=== PATIENT | female | born 1995 | race Caucasian/White ===

== ENCOUNTER 2020-01-01 16:27 | Outpatient (REF) | payer OTHER, SELFPAY | END 2020-01-01 16:28 | disposition home or self-care (01) | LOC: HO.LAB 16:27 | PROVIDERS: Visit Provider Internal Medicine | DX: Z20.828 Contact with and (suspected) exposure to other viral communicable diseases (principal) | CPT/HCPCS: 87635 ==

== ENCOUNTER 2020-08-26 20:10 | Emergency (ER) | payer OTHER, SELFPAY ==
[2020-08-26 20:46] VITALS: BP 109/69; PULSE 84; RESP 18; TEMP 36.7; O2SAT 100; BMI 28.1
[2020-08-26] MEDS: Lidocaine HCl 2 % MPF 5 ML VIAL SUBCUT (23:17)
--- NOTE | 2020-08-26 23:17 | ED.GENADULT ---
HPI - General Adult General Chief complaint: General Medical Stated complaint: infected spider bite Time Seen by Provider: 08/26/20 22:54 Source: patient Mode of arrival: ambulatory Limitations: no limitations History of Present Illness HPI narrative: 24-year-old female here with wound to the right lower extremity. The patient is 6 days ago she was [place] and felt like she got bit by something in the right lower leg. She was seen at urgent care 2 days ago and started on Bactrim but feels like the wound is not improving. No fevers or chills. Related Data Previous Rx's Medication Instructions Recorded doxycycline monohydrate 100 mg PO BID #14 cap 08/26/20 Allergies Allergy/AdvReac Type Severity Reaction Status Date / Time peanut [PEANUT] Allergy Severe DIFFICULTY Verified 08/26/20 20:46 BREATHING diphenhydramine Allergy Unknown Unknown Verified 08/26/20 20:46 [From BENADRYL] pineapple [PINEAPPLE] Allergy Unknown UNKNOWN Verified 08/26/20 20:46 SEAFOOD Allergy Severe DIFFICULTY Uncoded 11/21/19 16:38 BREATHING All sea foods Allergy Intermediate itching Uncoded 08/26/20 20:46 Laxtex Allergy Intermediate hives Uncoded 08/26/20 20:46 pinapple Allergy Unknown itchng Uncoded 09/04/19 00:00 throat Review of Systems Review of Systems: Yes all other systems are reviewed and are negative Constitutional: Constitutional: Reports no additional constitutional complaints, Denies body ache(s), Denies chills, Denies fever(s), Denies headache(s) and Denies weakness Eyes: Eyes: Reports no additional eye complaints and Denies change in vision ENT: Reports system reviewed and no additional complaints, except as documented, Denies dizziness, Denies headache(s), Denies nasal congestion, Denies nasal discharge and Denies neck pain Cardiovascular: Cardiovascular: Reports no additional cardiovascular complaints, Denies chest pain, Denies leg edema and Denies dyspnea Respiratory: Respiratory: Reports no additional respiratory complaints, Denies cough and Denies dyspnea Gastrointestinal: Gastrointestinal: Reports no additional gastrointestinal complaints, Denies abdominal pain, Denies diarrhea, Denies nausea and Denies vomiting Genitourinary: Genitourinary: Reports no additional female genitourinary complaints and Denies urinary incontinence Musculoskeletal: Musculoskeletal: Reports no additional musculoskeletal complaints, Denies back pain, Denies arthralgias, Denies joint swelling, Denies neck pain, Denies numbness and Denies tingling Integumentary/Breasts: Skin/Breast: Reports system reviewed and no additional complaints, except as docu, Reports swelling, Reports erythema and Denies rash Neurologic: Reports system reviewed and no additional complaints, except as documented, Denies Abnormal speech present, Denies dizziness, Denies headache(s), Denies numbness, Denies tingling and Denies weakness PMFSH Past Medical History Attestation statement: The following information was validated with the patient. Source: old records reviewed and nursing notes reviewed Medical History Anxiety Surgical History History of delivery Social History Social History Advance Directives: No Advance Directives Information Provided: No Patient : No Physical Exam Vital Signs: Vital Signs: Last Vital Signs Temp 98.1 F 08/26/20 20:46 Pulse 84 08/26/20 20:46 Resp 18 08/26/20 20:46 BP 109/69 08/26/20 20:46 Pulse Ox 100 08/26/20 20:46 Body Mass Index 28.1 Const: General: cooperative, healthy appearing, comfortable and no acute distress Orientation/consciousness: patient oriented x3 Limitations: no limitations HENMT: Head: Yes normal to inspection Ears: hearing grossly normal bilaterally General nose exam: Normal external nose present Face and sinus: Yes normal facial exam Mouth: Normal oral and palatal mucosa present Throat: Yes posterior oropharynx normal Eyes: General: appearance normal, both eyes and all related structures Pupils: Equal, round and reactive pupils present Neck: Neck: Yes normal visual inspection Chest: Chest palpation & inspection: normal inspection of the chest Resp: Effort & Inspection: normal respiratory effort Auscultation: clear to auscultation bilaterally Cardio: Rate: regular rate Rhythm: regular rhythm Peripheral pulses: Peripheral pulses 2+ throughout GI: Inspection: Yes normal to inspection Palpation (GI): Soft to palpation and nontender Auscultation: normal bowel sounds Back/Spine/Pelvis: Thoracic/Lumbar Spine: thoracic and lumbar spine normal to inspection Skin: Other: To the anterior aspect of the right lower extremity there is a circular area of redness with a central area of fluctuance, drainage and swelling. General skin exam: no rashes or lesions noted Neuro: General: patient oriented x3, no focal motor deficits and normal sensation to monofilament Cranial nerves: Yes Equal, round and reactive pupils present Cognition (Neuro): normal cognition Speech: No Abnormal speech present Gait exam (Neuro): Normal gait present Motor exam (neuro): 5/5 motor strength present throughout Extrem: General: Yes normal to inspection Course Course Course Narrative: Local cellulitis the right lower extremity with a central area of fluctuance and swelling. See procedure note for I and D. Will start patient on doxycycline. Reviewed wound care. Reviewed worrisome signs and symptoms such as fever, increasing swelling or pain when to return to the emergency department. Comfortable discharge home. Procedures Procedure Narrative Procedure Narrative: Area was cleansed with alcohol. 3 mL of 2% lidocaine were injected into the site was successful analgesia. Eleven blade used to express 5 mL of purulent drainage. dressing applied Discharge Plan Discharge Clinical Impression: Cellulitis, Insect bite, Abscess Patient Disposition: Home, Self-Care Instructions: Cellulitis (ED), Insect Bite or Sting (ED) Additional Instructions: start antibiotics warm compresses return for increasing redness, fevers, chills Prescriptions: New doxycycline monohydrate 100 mg capsule 100 mg PO BID Qty: 14 RF: 0 Referrals: Physician,Unknown [Primary Care Provider] - 2 days Interventions: ED Discharge Assessment Last Done: 08/26/20 23:15 Discharge Date/Time: 08/26/20 23:16
== END 2020-08-26 23:16 | disposition home or self-care (01) ==
PROVIDERS: Emergency Provider Emergency Medicine
DX: L02.415 Cutaneous abscess of right lower limb (principal); S80.861A Insect bite (nonvenomous), right lower leg, initial encounter; L03.115 Cellulitis of right lower limb; W57.XXXA Bitten or stung by nonvenomous insect and other nonvenomous arthropods, initial encounter; Y93.11 Activity, swimming; Y92.828 Other wilderness area as the place of occurrence of the external cause; Y99.9 Unspecified external cause status
CPT/HCPCS: 10060; 99284

== ENCOUNTER 2021-12-20 12:19 | Emergency (ER) | payer OTHER, SELFPAY ==
[2021-12-20 13:00] VITALS: BP 100/58; PULSE 69; RESP 16; TEMP 36.9; O2SAT 100; BMI 26.5
[2021-12-20 13:58] LABS: HCG Quantitative < 2 mIU/mL
--- NOTE | 2021-12-20 14:17 | ED.GENADULT ---
HPI - General Adult General Chief complaint: General Medical Stated complaint: ? Time Seen by Provider: 12/20/21 14:12 Source: patient Mode of arrival: ambulatory Limitations: no limitations History of Present Illness HPI narrative: unprotected intercouse 12/01, missed menses x 1 week neg preg test at home here for blood test MD complaint: menses late x 1 week Onset (ago): week(s) (1) Severity: mild Relieving factors: none Exacerbating factors: none Associated symptoms: denies other symptoms Treatments prior to arrival: none Related Data Previous Rx's Medication Instructions Recorded doxycycline monohydrate 100 mg 100 mg PO BID #14 caps 08/26/20 capsule Allergies Allergy/AdvReac Type Severity Reaction Status Date / Time peanut [PEANUT] Allergy Severe DIFFICULTY Verified 05/20/21 14:43 BREATHING diphenhydramine Allergy Unknown Unknown Verified 05/20/21 14:43 [From BENADRYL] pineapple [PINEAPPLE] Allergy Unknown UNKNOWN Verified 05/20/21 14:43 SEAFOOD Allergy Severe DIFFICULTY Uncoded 05/20/21 14:43 BREATHING All sea foods Allergy Intermediate itching Uncoded 05/20/21 14:43 Laxtex Allergy Intermediate hives Uncoded 05/20/21 14:43 pinapple Allergy Unknown itchng Uncoded 05/20/21 14:43 throat Review of Systems Review of Systems: Constitutional : No Fever, No Chills Cardiovascular : No Chest Pain, No SOB Respiratory : No Cough, No Sputum, No Wheezing Gastrointestinal : No Nausea, No Vomiting, No abdominal Pain, No Hematochezia, No Melena Genitourinary : No Dysuria, No Urinary Frequency, No Hematuria, missed menses Skin : No Skin Lesions, No rash Neuro : No Weakness, No Numbness, No Dizziness, No Headache PMFSH Past Medical History Medical History Anxiety Surgical History History of delivery Social History Social History (Updated 12/20/21 @ 14:28 by Charleen Jewell DO) Patient Tobacco Use Status: Never used Tobacco Physical Exam ED Vital Signs: Vital Signs - 24 hr 12/20/21 13:00 Temperature 98.5 F Pulse Rate 69 Respiratory Rate 16 Blood Pressure 100/58 L Pulse Oximetry 100 Oxygen Delivery Method Room Air BMI result Body Mass Index 26.5 Appearance: Alert. Oriented X3. No acute distress. Eyes: Pupils equal, round and reactive to light. ENT: Pharynx normal. Neck: Normal inspection. Neck supple. CVS: Normal heart rate and rhythm. Pulses normal. Respiratory: No respiratory distress. Breath sounds normal. Abdomen:atraumatic Skin: Skin warm and dry. Normal skin color. Neuro: Oriented X 3. No motor deficit. No sensory deficit. Medical Decision Making MDM Narrative Medical decision making narrative: 26 yo female unprotected sex on 12/01 late on period x 1 week negative test home - requesting blood test here which is negative has no symptoms. instructed her to take repeat test in 1 week if this continues will test for chlamydia given irregular menses Lab Data Labs: Lab Results 12/20/21 Range/Units 13:09 Beta HCG, Quant < 2 mIU/mL Discharge Plan Discharge Clinical Impression: Negative test Patient Disposition: Home, Self-Care Instructions: Normal Exam (ED) Additional Instructions: return to ED for any worsening symptoms or concerns negative test today repeat in 1 week Prescriptions: No Action doxycycline monohydrate 100 mg capsule 100 mg PO BID Qty: 14 0RF
[2021-12-20 16:48] LABS: CT PCR DETECTED (Not Detect.); NG PCR NOT DETECTED (Not Detect.)
== END 2021-12-20 14:41 | disposition home or self-care (01) ==
PROVIDERS: Emergency Medicine; Emergency Provider Emergency Medicine
DX: A74.9 Chlamydial infection, unspecified (principal); Z32.02 Encounter for pregnancy test, result negative
CPT/HCPCS: 36415; 84702; 87491; 87591; 99283

== ENCOUNTER 2022-09-30 18:40 | Emergency (ER) | payer OTHER, SELFPAY ==
[2022-09-30 18:51] VITALS: BP 127/79; PULSE 76; RESP 18; TEMP 36.3; O2SAT 94; BMI 27.0
--- OUTSIDE RECORDS SUMMARY | 2022-09-30 19:21 | XMS_ITS | Continuity of Care Document ---
Author Name Unknown Organization [facility] Adult Address [address] [place] [address]- Care Team Providers Care Rand Butter Name Role Phone Jaymie Yeh MD Primary Care Physician [phone] [facility] [place] Date(s): 12/14/20 - 01/13/21 [facility] Adult [address] [place] [address]- Allergies, Adverse Reactions, Alerts Substance Reaction Severity Status Benadryl Active Latex Active Peanuts Active Seafood Active Pineapple Active Immunizations Given and Recorded Vaccine Date Status Refusal Reason tetanus/diphtheria/pertussis, acel(Tdap) 01/15/19 Given Medications Aviane 100 mcg-20 mcg oral tablet 1 tablet, By Mouth, Daily, # 84 tablet, 3 Refills, Maintenance, 12/04/20 11:04:00 EDT, Tablet, [id number], Partial fill upon patient request if the prescription is for a schedule II opioid drug., 1 tablet By Mouth Daily, 151, cm, 12/04/20 10:5... Start Date: 12/04/20 Status: Ordered Diflucan 150 mg oral tablet 1 tablet = 150 mg, By Mouth, Once, # 1 tablet, 0 Refills, Soft Stop, 09/11/20 14:54:00 EDT, [id number], Partial fill upon patient request if the prescription is for a schedule II opioid drug., 151, cm, 09/11/20 11:43:00 EDT, Height Start Date: 09/11/20 Status: Ordered triamcinolone 0.1% topical cream See Instructions, APPLY TO AFFECTED AREA TWICE A DAY, # 60 Gm, 0 Refills, Acute, [id number], 30, APPLY TO AFFECTED AREA TWICE A DAY, 151, cm, 09/11/20 11:43:00 EDT, Height Start Date: 10/16/20 Status: Ordered Problem List Condition Effective Dates Status Health Status Inform ant H/O Chlamydia(Confirmed) Active Dermatitis(Confirmed) Active Noncompliance(Confirmed) Active Sickle cell trait(Confirmed) Active Social History Social History Type Response Smoking Status Never (less than 100 in lifetime) entered on: 07/05/18 Sex Female
--- OUTSIDE RECORDS SUMMARY | 2022-09-30 19:21 | XMS_ITS | Continuity of Care Document ---
Author Name Unknown Organization [facility] Adult Address [address] [place] [address]- Care Team Providers Care Clinical Editor Name Role Phone Ruba BARROS, Jaymie Primary Care Physician [place] [facility] [place]/01/21 [facility] [address] [place], [place] [address] Allergies, Adverse Reactions, Alerts Substance Reaction Severity [...] A DAY, # 60 Gm, 0 Refills, Physician Stop 03/05/22 8:31:00 EST, 03/03/21 8:31:00 EST, [id number], 30, APPLY TO AFFECTED AREA TWICE A DAY, 151, cm, 03/02/21 9:46:00 EST, Height Start Date: 03/03/21 Stop Date: 03/05/22 Status: Ordered Problem List Condition Effective Dates Status Health Status Inform ant H/O Chlamydia(Confirmed) Active Dermatitis(Confirmed) Active Noncompliance(Confirmed) Active Sickle cell trait(Confirmed) Active Social History Social History Type Response Smoking Status Never (less than 100 in lifetime) entered on: 07/05/18 Sex Female
--- OUTSIDE RECORDS SUMMARY | 2022-09-30 19:21 | XMS_ITS | Continuity of Care Document ---
Author Name Unknown Organization [facility] Adult Address [address] [place] [address]- Care Team Providers Care Filter Worker Name Role Phone Jaymie Yeh MD Primary Care Physician [phone] Encounter [facility] [place] Date(s): 11/16/20 - 12/16/20 [facility] Adult [address] [place] [address]- Allergies, Adverse Reactions, Alerts Substance Reaction Severity [...] 60 Gm, 0 Refills, Acute, [id number], 30, APPLY TO AFFECTED AREA TWICE A [...]
--- OUTSIDE RECORDS SUMMARY | 2022-09-30 19:21 | XMS_ITS | Continuity of Care Document ---
Author Name Unknown Organization [facility] Adult Address [address] [place] [address]- Care Team Providers Care Software Program Manager Name Role Phone Ruba BARROS, Jaymie Primary Care Physician [place] [facility] [place] Date(s): 03/02/21 - 04/01/[address] [facility] Adult [address] [place] [address]- Attending Physician: Bill Spencer Admitting Physician: AdmBill lennon Referring Physician: AdmtrBill Allergies, Adverse Reactions, Alerts Substance Reaction Severity Status Benadryl Active Latex Active Pineapple Active Peanuts Active Seafood Active Immunizations Given and Recorded Vaccine Date [...]
--- OUTSIDE RECORDS SUMMARY | 2022-09-30 19:21 | XMS_ITS | Continuity of Care Document ---
Author Name Unknown Organization [facility] Address [address] [place] [address]- Care Team Providers Care Side Framer Name Role Phone Ruba BARROS, Jaymie Primary Care Physician Encounter [facility] [place] Date(s): 06/03/20 - 07/03/20 [facility] [address] [place], [place] [address] [[email or web address]] Allergies, Adverse Reactions, Alerts Substance Reaction Severity Status Benadryl Active Latex Active Peanuts Active Seafood Active Pineapple Active Immunizations Given and Recorded Vaccine Date Status Refusal Reason tetanus/diphtheria/pertussis, acel(Tdap) 01/15/19 Given Medications Plan B One-Step 1.5 mg oral tablet 1.5 mg, 1, tablet, By Mouth, Once, # 1 tablet, Refills 0, Tot. Refills 0, Soft Stop, 05/09/20 13:37:00 EST, Route to Pharmacy Electronically, [facility]/pharmacy #[id number], Partial fill upon patient request if the prescription is for a schedule II opioid drug.,... Start Date: 05/09/20 Status: Ordered Plan B One-Step 1.5 mg oral tablet 1.5 mg, 1, tablet, By Mouth, Once, # 1 tablet, Refills 0, Tot. Refills 0, Soft Stop, 06/22/20 16:29:00 EDT, Route to Pharmacy Electronically, [facility]/pharmacy #[id number], Partial fill upon patient request if the prescription is for a schedule II opioid drug.,... Start Date: 06/22/20 Status: Ordered triamcinolone 0.1% topical cream See Instructions, Topically 2 times a day, # 60 Gm, 0 Refills, Maintenance, 06/08/20 12:45:00 EDT, [facility]/pharmacy #[id number], Partial fill upon patient request if the prescription is for a schedule II opioid drug., Topically 2 times a day, 151, cm, 03/26/20... Start Date: 06/08/20 Status: Ordered Problem List Condition Effective Dates Status Health Status Inform ant H/O Chlamydia(Confirmed) Active Dermatitis(Confirmed) Active Noncompliance(Confirmed) Active Sickle cell trait(Confirmed) Active Social History Social History Type Response Smoking Status Never (less than 100 in lifetime) entered on: 07/05/18 Sex Female
--- OUTSIDE RECORDS SUMMARY | 2022-09-30 19:21 | XMS_ITS | Continuity of Care Document ---
Author Name Unknown Organization [facility] Adult Address [address] [place] [address]- Care Team Providers Care Fire Hose Curer Name Role Phone Jaymie Yeh MD Primary Care Physician [phone] [id number] Date(s): 05/05/22 - 06/04/[address] [address]- Allergies, Adverse Reactions, Alerts Substance Reaction Severity Status Benadryl Active Latex Active Peanuts Active Seafood Active Pineapple Active Immunizations Given and Recorded Vaccine Date Status Refusal Reason tetanus/diphtheria/pertussis, acel(Tdap) 01/15/19 Given Medications ferrous sulfate 325 mg oral enteric coated tablet 325 mg, 1, tablet, By Mouth, 2 times a day, # 180 tablet, Refills 1, Tot. Refills 1, Maintenance, 05/27/22 10:12:00 EDT, Route to Pharmacy Electronically, [facility]/pharmacy #[id number], Partial fill upon patient request if the prescription is for a schedule II o... Start Date: 05/27/22 Status: Ordered Problem List Condition Confirmation Course Effective Dates Status Health St [facility] Informant Dermatitis Confirmed Active Noncompliance Confirmed Active Sickle cell trait Confirmed Active Social History Social History Type Response Smoking Status Never (less than 100 in lifetime) entered on: 05/09/22 Sex Female Patient Care team information Care Team Personnel Name: Jaymie Yeh MD Position: S Primary Care Physician Member Role: PCP Address: Address: [address] [place] [address]- Care Team Related Persons Name: ALETA HERNDON Address: home [address] [place] [address] Name: EDNA WALDRON Address: [place] [address] Name: ANANYA SUMMERSALYS Address: [employer] Address: home [address] [place] [address]
--- OUTSIDE RECORDS SUMMARY | 2022-09-30 19:21 | XMS_ITS | Continuity of Care Document ---
Author Name Unknown Organization [facility] Adult Address [address] [place] [address]- Care Team Providers Care Scrap Materials Buyer Name Role Phone Ruba BARROS, Jaymie Primary Care Physician [phone] Encounter [facility] [place] Date(s): 01/26/21 - 03/18/21 [facility] Adult [address] [place] [address]- Attending Physician: Jaymie Yeh MD Allergies, Adverse Reactions, Alerts Substance Reaction Severity [...]
--- OUTSIDE RECORDS SUMMARY | 2022-09-30 19:21 | XMS_ITS | Continuity of Care Document ---
Author Name Unknown Organization [facility] Adult Address [address] [place] [address]- Care Team Providers Care Post Secondary Professional Name Role Phone Ruba BARROS, Jaymie Primary Care Physician [place] [facility] [place]21 - 05/15/21 [facility] [address] [place], [place] [address] Allergies, Adverse Reactions, Alerts Substance Reaction Severity [...]
--- OUTSIDE RECORDS SUMMARY | 2022-09-30 19:21 | XMS_ITS | Continuity of Care Document ---
Author Name Unknown Organization [facility] Adult Address [address] [place] [address]- Care Team Providers Care Supervisor Riprap Placing Name Role Phone Jaymie Yeh MD Primary Care Physician [phone] Encounter [place] Date(s): 12/08/20 - 01/07/21 [facility] [address] [place] [address]- Allergies, Adverse Reactions, Alerts Substance Reaction Severity [...] 60 Gm, 0 Refills, Acute, [id number], 30, APPLY TO AFFECTED AREA TWICE A [...]
--- NOTE | 2022-09-30 19:22 | ED_ITS ---
HPI - General Adult General Chief complaint: Skin/Abscess/Foreign Body Stated complaint: staff infection? Time Seen by Provider: 09/30/22 19:21 Source: patient Mode of arrival: ambulatory Limitations: no limitations History of Present Illness HPI narrative: Patient is a 26 year old assigned female at with a history of eczema presenting to the emergency department today with a rash. Patient states that she has not used any kind of steroid for her eczema in over a year. Patient states that this rash seems to be getting worse and spreading. Patient states that she believes this is a staph infection as she was exposed to staph. Patient denies any dizziness, lightheadedness, abdominal pain, nausea, vomiting, fever, chills, blurry vision, double vision, loss of vision, chest pain, difficulty breathing, shortness of breath, back pain, night sweats, pain with urination, increased urinary frequency, increased urinary urgency, blood in her urine or stool, syncope or a near syncopal episode, recent trauma or falls, bowel incontinence, bladder incontinence, bowel retention, bladder retention, or any other complaints at this time. Onset (ago): day(s) Location: face, left, right, upper extremity and lower extremity Severity: mild Severity scale (1-10): 3 Relieving factors: none Exacerbating factors: none Associated symptoms: rash Treatments prior to arrival: none Related Data Previous Rx's Medication Instructions Recorded doxycycline monohydrate 100 mg 100 mg PO BID #14 caps 08/26/20 capsule doxycycline monohydrate 100 mg 100 mg PO BID #20 tabs 12/22/21 tablet cephalexin 500 mg capsule 500 mg PO Q6H 7 days #28 caps 09/30/22 Allergies Allergy/AdvReac Type Severity Reaction Status Date / Time peanut [PEANUT] Allergy Severe DIFFICULTY Verified 05/20/21 14:43 BREATHING diphenhydramine Allergy Unknown Unknown Verified 05/20/21 14:43 [From BENADRYL] pineapple [PINEAPPLE] Allergy Unknown UNKNOWN Verified 05/20/21 14:43 Latex, Natural Rubber Allergy Itching Verified 09/30/22 18:57 SEAFOOD Allergy Severe DIFFICULTY Uncoded 05/20/21 14:43 BREATHING All sea foods Allergy Intermediate itching Uncoded 05/20/21 14:43 Review of Systems Constitutional: Constitutional: Reports no additional constitutional complaints, Denies chills, Denies fever(s) and Denies night sweats Eyes: Eyes: Reports no additional eye complaints, Denies blurry vision, Denies change in vision, Denies diplopia, Denies eye discharge, Denies loss of vision and Denies eye pain ENT: Denies dizziness Cardiovascular: Cardiovascular: Reports no additional cardiovascular complaints, Denies chest pain, Denies lightheadedness, Denies Loss of Consciousness and Denies dyspnea Respiratory: Respiratory: Reports no additional respiratory complaints and Denies dyspnea Gastrointestinal: Gastrointestinal: Reports no additional gastrointestinal complaints, Denies abdominal pain, Denies melena, Denies hematochezia, Denies change in bowel habits and Denies change in stool character Genitourinary: Genitourinary: Denies hematuria, Denies urinary frequency, Denies dysuria, Denies urinary incontinence, Denies urinary hesitancy and Denies urinary urgency Musculoskeletal: Musculoskeletal: Reports no additional musculoskeletal complaints, Denies numbness and Denies tingling Integumentary/Breasts: Skin/Breast: Reports rash Neurologic: Denies dizziness, Denies loss of vision, Denies numbness and Denies tingling Psychiatric: Psychiatric: Reports no additional psychiatric complaints Endocrine: Endocrine: Reports no additional endocrine complaints Hematologic/Lymphatic: Hematologic/Lymphatic: Reports no additional hematologic/lymphatic complaints Allergic/Immunologic: Allergic/Immunologic: Reports no additional allergic/immunologic complaints PMFSH Past Medical History Attestation statement: The following information was validated with the patient. Source: old records reviewed and nursing notes reviewed Medical History Anxiety Surgical History History of delivery Social History Social History Patient Tobacco Use Status: Never used Tobacco Advance Directives: No Advance Directives Information Provided: Yes Physical Exam ED Vital Signs: Vital Signs - 24 hr 09/30/22 18:51 Temperature 97.4 F Pulse Rate 76 Respiratory Rate 18 Blood Pressure 127/79 Pulse Oximetry 94 BMI result Body Mass Index 27.0 Const General: cooperative, no acute distress, alert and awake Nutritional Appearance: well nourished Orientation/consciousness: patient oriented x3 Limitations: no limitations HENMT Head: Yes normal to inspection and Yes atraumatic Ears: hearing grossly normal bilaterally and external ears normal General nose exam: Normal external nose present, no nasal discharge noted and no epistaxis Face and sinus: Yes normal facial exam, No abrasion and No laceration Mouth: Normal oral and palatal mucosa present, no drooling and no muffled voice Eyes General: appearance normal, both eyes and all related structures Periorbital: periorbital findings normal Eyelids: Yes eyelids normal Conjunctivae: conjunctivae normal Pupils: Equal, round and reactive pupils present EOM: EOMs intact bilaterally Neck Neck: Yes normal visual inspection, Yes full ROM and Yes no lymphadenopathy Chest Chest palpation & inspection: normal inspection of the chest Resp Effort & Inspection: normal respiratory effort and able to speak in complete sentences GI Inspection: Yes normal to inspection Skin Other: rash to the bilateral hands, feet, and face Neuro General: patient oriented x3 and moves all extremities Cranial nerves: Yes Equal, round and reactive pupils present Cognition (Neuro): normal cognition Motor exam (neuro): 5/5 motor strength present throughout Sensory Exam: Normal double simultaneous stimulation for sensation Coordination: [id number] test normal Extrem General: Yes normal to inspection, Yes full ROM and Yes capillary refill normal Psych Appearance: grossly normal Mental Status: mental status grossly normal Affect: normal affect Attitude: cooperative Thought process: Normal thought process present Thought content: Normal thought content present Insight: Good insight present (Psych) Medical Decision Making Medical Decision Making MDM Narrative: Patient is a 26 year old assigned female at with a history of eczema presenting to the emergency department today with a rash. Patient's physical exam showed a rash. I explained my physical exam findings to the patient. I answered all questions asked by the patient. Patient refused any kind of steroid treatment. I stressed the importance of the patient taking her medication as prescribed. I stressed the importance of the patient following up with her primary care provider and a red hat linux administrator. I stressed the importance of the patient returning to the emergency department immediately if her symptoms were to worsen or if she were to develop any dizziness, shortness of breath, difficulty breathing, chest pain, blurry vision, loss of vision, nausea, vomiting, abdominal pain, fever, chills, back pain, or any other complaints. Patient verbalized agreement and understanding with this treatment plan and discharge. Differential Diagnosis Differential Diagnoses: The differential diagnosis associated with the presentation includes Eczema Folliculitis Impetigo Staph cellulitis Prescription Management I considered prescription management with: Antibiotic (patient prescribed an antibiotic.) Discharge Plan Discharge Clinical Impression: Staph skin infection Patient Disposition: Home, Self-Care Instructions: Cellulitis (DC) Additional Instructions: Follow up with your primary care provider. Return to the emergency department immediately if your symptoms worsen or if you develop any dizziness, shortness of breath, difficulty breathing, chest pain, blurry vision, loss of vision, nausea, vomiting, abdominal pain, fever, chills, back pain, or any other complaints. Prescriptions: New cephalexin 500 mg capsule 500 mg PO Q6H 7 Days Qty: 28 0RF No Action doxycycline monohydrate 100 mg capsule 100 mg PO BID Qty: 14 0RF doxycycline monohydrate 100 mg tablet 100 mg PO BID Qty: 20 0RF Referrals: [facility] [Provider Group] (Call to establish and follow up with a red hat linux administrator (exterior interior specialist).) [facility] [place]] (Call to establish and follow up with a primary care provider. If you already have a primary care provider, please follow up with them.) [facility] [place] [facility] [Provider Group] (Call to establish and follow up with a primary care provider. If you already have a primary care provider, please follow up with them.) [facility] [place] [Provider Group] (Call to establish and follow up with a primary care provider. If you already have a primary care provider, please follow up with them.) Interventions: ED Discharge Assessment Last Done: 09/30/22 20:10 Discharge Date/Time: 09/30/22 20:10 Print Language: Croatian
--- OUTSIDE RECORDS SUMMARY | 2022-09-30 19:22 | XMS_ITS | Continuity of Care Document ---
Author Name Unknown Organization [facility] Address [address] [place] [address]- Care Team Providers Care Sales Manager Prearranged Funerals Name Role Phone Raheem BARROS, [facility] Primary Care Physician Encounter [facility] [place] Date(s): 01/28/19 - 02/28/[address] [address]- [facility] Attending Physician: Not on Staff, Attending MD Allergies, Adverse Reactions, Alerts Substance Reaction Severity Status Benadryl Active Latex Active Peanuts Active Seafood Active Pineapple Active Immunizations Given and Recorded Vaccine Date Status Refusal Reason tetanus/diphtheria/pertussis, acel(Tdap) 01/15/19 Given Medications Colace sodium 100 mg oral capsule 100 mg, 1, capsule, By Mouth, 2 times a day, PRN, # 20 capsule, Refills 0, Tot. Refills 0, Maintenance, for constipation, 02/07/19 13:42:09 EST, Route to Pharmacy Electronically, [id number], [facility]/pharmacy #[id number], 151, cm, 02/07... Start Date: 02/07/19 Status: Ordered Multivitamins with Folic Acid 1 mg oral capsule See Instructions, TAKE ONE DAILY BY MOUTH, # 100 tablet, 2 Refills, Maintenance, 07/05/18 16:52:13 EDT, TAKE ONE DAILY BY MOUTH Start Date: 07/05/18 Status: Ordered Problem List Condition Effective Dates Status Health Status Inform ant H/O Anxiety(Confirmed) Active H/O Chlamydia(Confirmed) Active Eczema(Confirmed) Active History of varicella as a child(Confirmed) Active History of marijuana use(Confirmed) Active Noncompliance(Confirmed) Active Sickle cell trait(Confirmed) Active Social History Social History Type Response Smoking Status Never (less than 100 in lifetime) entered on: 07/05/18 Sex Female
--- OUTSIDE RECORDS SUMMARY | 2022-09-30 19:22 | XMS_ITS | Continuity of Care Document ---
Author Name Unknown Organization [facility] Adult Address [address] [place] [address]- Care Team Providers Care Slat Pickler Name Role Phone Ruba BARROS, Jaymie Primary Care Physician [id number] Date(s[facility] 06/30/20 - 10/28/20 [facility] [address] [place] [address]- Attending Physician: Jaymie Yeh MD Allergies, Adverse Reactions, Alerts Substance Reaction Severity Status Benadryl Active Latex Active Pineapple Active Peanuts Active Seafood Active Immunizations Given and Recorded Vaccine Date Status Refusal Reason tetanus/diphtheria/pertussis, acel(Tdap) 01/15/19 Given Medications Diflucan 150 mg oral tablet 1 tablet = 150 mg, By Mouth, Once, # 1 tablet, 0 Refills, Soft Stop, 09/11/20 14:54:00 EDT, [facility]/pharmacy #[id number], Partial fill upon patient request if the prescription is for a schedule II opioid drug., 151, cm, 09/11/20 11:43:00 EDT, Height Start Date: 09/11/20 Status: Ordered Plan B One-Step 1.5 mg oral tablet 1.5 mg, 1, tablet, By Mouth, Once, # 1 tablet, Refills 0, Tot. Refills 0, Soft Stop, 05/09/20 13:37:00 EST, Route to Pharmacy Electronically, [facility]/pharmacy #[id number], Partial fill upon patient request if the prescription is for a schedule II opioid drug.,... Start Date: 05/09/20 Status: Ordered Plan B One-Step 1.5 mg oral tablet 1.5 mg, 1, tablet, By Mouth, Once, # 1 tablet, Refills 0, Tot. Refills 0, Soft Stop, 08/25/20 9:59:00 EDT, Route to Pharmacy Electronically, [facility]/pharmacy #[id number], Partial fill upon patient request if the prescription is for a schedule II opioid drug., 1... Start Date: 08/25/20 Status: Ordered triamcinolone 0.1% topical cream See Instructions, APPLY TO AFFECTED AREA TWICE A DAY, # 60 Gm, 0 Refills, Acute, [id number], 30, APPLY TO AFFECTED AREA TWICE A [...]
--- OUTSIDE RECORDS SUMMARY | 2022-09-30 19:22 | XMS_ITS | Continuity of Care Document ---
Author Name Unknown Organization [facility] Address [address] [place] [address]- Care Team Providers Care Ladle Watcher Name Role Phone Jaymie Yeh MD Primary Care Physician [phone] [facility] [id number] Date(s): 07/17/20 - 08/16/20 [facility] [address] [place], [place] [address] Attending Physician: AdmBill lennon Admitting Physician: AdmtrBill Referring Physician: Admtr, Ar8 Allergies, Adverse Reactions, Alerts Substance Reaction Severity Status Benadryl Active Latex Active Peanuts Active Seafood Active Pineapple Active Immunizations Given and Recorded Vaccine Date Status Refusal Reason tetanus/diphtheria/pertussis, acel(Tdap) 01/15/19 Given Medications Plan B One-Step 1.5 mg oral tablet 1.5 mg, 1, tablet, By Mouth, Once, # 1 tablet, Refills 0, Tot. Refills 0, Soft Stop, 05/09/20 13:37:00 EST, Route to Pharmacy Electronically, [facility]/pharmacy #[id number], Partial fill upon patient request if the prescription is for a schedule II opioid drug.,... Start Date: 05/09/20 Status: Ordered Plan B One-Step 1.5 mg oral tablet 1.5 mg, 1, tablet, By Mouth, Once, # 1 tablet, Refills 0, Tot. Refills 0, Soft Stop, 06/22/20 16:29:00 EDT, Route to Pharmacy Electronically, [facility]acy [id number], Partial fill upon patient request if the prescription is for a schedule II opioid drug.,... Start Date: 06/22/20 Status: Ordered triamcinolone 0.1% topical cream See Instructions, Topically 2 times a day, # 60 Gm, 0 Refills, Maintenance, 07/15/20 15:02:00 EDT, [facility]/pharmacy #[id number], Partial fill upon patient request if the prescription is for a schedule II opioid drug., Topically 2 times a day, 151, cm, 03/26/20... Start Date: 07/15/20 Status: Ordered Problem List Condition Effective Dates Status Health Status Inform ant H/O Chlamydia(Confirmed) Active Dermatitis(Confirmed) Active Noncompliance(Confirmed) Active Sickle cell trait(Confirmed) Active Social History Social History Type Response Smoking Status Never (less than 100 in lifetime) entered on: 07/05/18 Sex Female
--- OUTSIDE RECORDS SUMMARY | 2022-09-30 19:22 | XMS_ITS | Continuity of Care Document ---
Author Name Unknown Organization [facility] Address [address] [place] [address]- Care Team Providers Care Removable Prosthodontist Name Role Phone Jaymie Yeh MD Primary Care Physician [place] [facility] - 08/13/22 [facility] [address] [place] [address]- Attending Physician: Bill Spencer Admitting Physician: Bill Spencer Referring Physician: Bill Spencer Allergies, Adverse Reactions, Alerts Substance Reaction Severity Status Benadryl Active Latex Active Peanuts Active Seafood Active Pineapple Active Immunizations Given and Recorded Vaccine Date Status Refusal Reason tetanus/diphtheria/pertussis, acel(Tdap) 01/15/19 Given Problem List Condition Confirmation Course Effective Dates Status [facility] Informant Dermatitis Confirmed Active Noncompliance Confirmed Active Sickle cell trait Confirmed Active Social History Social History Type Response Smoking Status Never (less than 100 in lifetime) entered on: 05/09/22 Sex Female Patient Care team information Care Team Personnel Name: Jaymie Yeh MD Position: [facility] Physician - Primary Care Member Role: PCP [facility]: [facility] [place] [address]- [place] Care Team Related Persons Name: ALETA HERNDON Address: home [address] [place] [address] Name: EDNA WALDRON Address: [place] [address] Name: MORENO SUMMERS Address: [employer] Address: home [address] [place] [address]
--- OUTSIDE RECORDS SUMMARY | 2022-09-30 19:22 | XMS_ITS | Continuity of Care Document ---
Author Name Unknown Organization [facility] Address [address] [place] [address]- Care Team Providers Care Household Appliances Service Technician Name Role Phone Jaymie Yeh MD Primary Care Physician [id number] Date(s): 03/08/21 - 04/07/[address] [address]- Attending Physician: AdmBill lennon Admitting Physician: AdmtrBill [...]
--- OUTSIDE RECORDS SUMMARY | 2022-09-30 19:22 | XMS_ITS | Continuity of Care Document ---
Author Name Unknown Organization [facility] Address [address] [place] [address]- Care Team Providers Care Box Spring Frame Builder Name Role Phone Ruba BARROS, Jaymie Primary Care Physician Encounter [facility] Date(s): 11/03/20 - 12/03/20 [facility] [address] [place] [address]- Attending Physician: Bill Spencer Admitting Physician: AdmBill [...] 0 Refills, Soft Stop, 09/11/20 14:54:00 EDT, [facility]/pharmacy #[id number], Partial fill upon patient request if the prescription is for a schedule II opioid drug., 151, cm, 09/11/20 11:43:00 EDT, Height Start Date: 09/11/20 Status: Ordered Plan B One-Step 1.5 mg oral tablet 1.5 mg, 1, tablet, By Mouth, Once, # 1 tablet, Refills 0, Tot. Refills 0, Soft Stop, 05/09/20 13:37:00 EST, Route to Pharmacy Electronically, [facility]/pharmacy #[id number], Partial fill upon patient request if the prescription is for a schedule II opioid drug.,... Start Date: 05/09/20 Status: Ordered Plan B One-Step 1.5 mg oral tablet 1.5 mg, 1, tablet, By Mouth, Once, # 1 tablet, Refills 0, Tot. Refills 0, Soft Stop, 08/25/20 9:59:00 EDT, Route to Pharmacy Electronically, [facility]/pharmacy #[id number], Partial fill upon patient request if the prescription is for a schedule II opioid drug., 1... Start Date: 08/25/20 Status: Ordered triamcinolone 0.1% topical cream See Instructions, APPLY TO AFFECTED AREA TWICE A DAY, # 60 Gm, 0 Refills, Acute, [id number], 30, APPLY TO AFFECTED AREA TWICE A [...]
--- OUTSIDE RECORDS SUMMARY | 2022-09-30 19:22 | XMS_ITS | Continuity of Care Document ---
Author Name Unknown Organization [facility] Address [address] [place] [address]- Care Team Providers Care Telephone Lines Repairer Name Role Phone Ruba BARROS, Jaymie Primary [id number] Date(s[facility] 06/03/20 - 08/16/20 [facility] [address] [place] [address]- Attending Physician: Wen High MD Referring Physician: Jaymie Yeh MD Allergies, Adverse Reactions, [...] 05/09/20 13:37:00 EST, Route to Pharmacy Electronically, [facility]/pharmacy #[id number], Partial fill upon patient request if the prescription is for a schedule II opioid drug.,... Start Date: 05/09/20 Status: Ordered Plan B One-Step 1.5 mg oral tablet 1.5 mg, 1, tablet, By Mouth, Once, # 1 tablet, Refills 0, Tot. Refills 0, Soft Stop, 06/22/20 16:29:00 EDT, Route to Pharmacy Electronically, [facility]/pharmacy #[id number], Partial fill upon patient request if the prescription is for a schedule II opioid drug.,... Start Date: 06/22/20 Status: Ordered triamcinolone 0.1% topical cream See Instructions, Topically 2 times a day, # 60 Gm, 0 Refills, Maintenance, 07/15/20 15:02:00 EDT, [facility]/pharmacy #[id number], Partial fill upon patient request if the [...]
--- OUTSIDE RECORDS SUMMARY | 2022-09-30 19:22 | XMS_ITS | Continuity of Care Document ---
Author Name Unknown Organization [facility] Address [address] [place] [address]- Care Team Providers Care Cisco Engineer Name Role Phone Jaymie Yeh MD Primary Care Physician [id number] Date(s): 05/09/22 - 06/08/[address] [address]- Allergies, Adverse Reactions, Alerts Substance Reaction Severity [...] 05/27/22 10:12:00 EDT, Route to Pharmacy Electronically, [facility]/pharmacy #[id number], Partial fill upon patient request if the prescription is for a schedule II o... Start Date: 05/27/22 Status: Ordered Problem List Condition Confirmation Course Effective Dates Status [facility] Informant Dermatitis Confirmed Active Noncompliance Confirmed Active Sickle cell trait Confirmed Active Social History Social History Type Response Smoking Status Never (less than 100 in lifetime) entered on: 05/09/22 Sex Female Patient Care team information Care Team Personnel Name: Jaymie Yeh MD Position: S Primary Care Physician Member Role: PCP Address: Address: [address] [place] [address]- Care Team Related Persons Name: ALETA HERNDON Address: home [address] [place] [address] Name: EDNA WALDRON Address: [place] [address] Name: CARRIE SUMMERSJEREMY Address: [employer] Address: home [address] [place] [address]
--- OUTSIDE RECORDS SUMMARY | 2022-09-30 19:22 | XMS_ITS | Continuity of Care Document ---
Author Name Unknown Organization [facility] Address [address] [place] [address]- Care Team Providers Care Call Worker Name Role Phone Raheem BARROS, [facility] Primary Care Physician En[place] [facility] [place] Date(s): 12/07/18 - 02/17/19 [facility] [address] [place] [address]- [facility] Attending Physician: Raheem BARROS, [facility] Allergies, Adverse Reactions, Alerts Substance Reaction Severity [...] 02/07/19 13:42:09 EST, Route to Pharmacy Electronically, [id number], [facility]/pharmacy #[id number], 151, cm, 02/07... Start Date: 02/07/19 Status: Ordered ibuprofen 600 mg oral tablet 600 mg, 1, tablet, By Mouth, Every 6 hours, # 30 tablet, Refills 0, Tot. Refills 0, Acute 03/01/19 0:00:00 EST, 02/07/19 13:42:15 EST, Route to Pharmacy Electronically, [id number], [facility]/pharmacy #[id number], 151, cm, 02/07/19 8:59:3... Start Date: 02/07/19 Stop Date: 03/01/19 Status: Ordered Multivitamins with Folic Acid 1 mg oral capsule See Instructions, TAKE ONE DAILY BY MOUTH, # 100 tablet, 2 Refills, Maintenance, 07/05/18 16:52:13 EDT, TAKE ONE DAILY BY MOUTH Start Date: 07/05/18 Status: Ordered simethicone 80 mg oral tablet 1 tablet = 80 mg, Chew, 3 times a day after meals and bedtime, PRN for gas, # 60 tablet, 0 Refills,Acute 03/01/19 0:00:00 EST, 02/07/19 13:42:19 EST, Tablet, 151, cm, 02/07/19 8:59:31 EST, Height, 63.3, kg, 05/02/18 16:54:16 EST, Dry Weight Start Date: 02/07/19 Stop Date: 03/01/19 Status: Ordered Tylenol 325 mg oral tablet 650 mg, 2, tablet, By Mouth, Every 4 hours, PRN, # 120 tablet, Refills 0, Tot. Refills 0, Acute 02/28/19 0:00:00 EST, for pain, 02/07/19 13:42:26 EST, Route to Pharmacy Electronically, [id number], [facility]/pharmacy #[id number], 151, cm,... Start Date: 02/07/19 Stop Date: 02/28/19 Status: Ordered Problem List Condition Effective Dates [...]
--- OUTSIDE RECORDS SUMMARY | 2022-09-30 19:22 | XMS_ITS | Continuity of Care Document ---
Author Name Unknown Organization [facility] Address [address] [place] [address]- Care Team Providers Care Security Officer Name Role Phone Jaymie Yeh MD Primary Care Physician En[place] [facility] Date(s): 07/14/22 - 08/13/[address] [facility] [address] [place] [address]- Allergies, Adverse Reactions, Alerts Substance Reaction Severity [...] Personnel Name: Jaymie Yeh MD Position: S Physician - Primary Care Member Role: PCP Address: Address: [address] [place] [address] [address] [place], [place] [address] Care Team Related Persons Name: ALETA HERNDON Address: home [address] [place] [address] Name: EDNA WALDRON Address: [place] [address] Name: MORENO SUMMERS Address: [employer] Address: home [address] [place] [address]
--- OUTSIDE RECORDS SUMMARY | 2022-09-30 19:22 | XMS_ITS | Continuity of Care Document ---
Author Name Unknown Organization [facility] Address [address] [place] [address]- Care Team Providers Care Firefighter Name Role Phone Ruba BARROS, Jaymie Primary Care Physician [place] [facility] [place] Date(s): 03/02/21 - 03/09/21 [facility] [address] [place] [address]- Attending Physician: Not on Staff, Attending MD [...] Active Noncompliance(Confirmed) Active Sickle cell trait(Confirmed) Active Vital Signs Most recent to oldest [Reference Range]: 1 Height 151 cm (03/02/21 9:46 AM) Social History Social History Type Response Smoking Status Never (less than 100 in lifetime) entered on: 07/05/18 Sex Female
--- OUTSIDE RECORDS SUMMARY | 2022-09-30 19:22 | XMS_ITS | Continuity of Care Document ---
Author Name Unknown Organization [facility] Address [address] [place] [address]- Care Team Providers Care Silk Printer Name Role Phone Not on Staff, PCP Primary Care Physician Unavail able Encounter [facility] [place] Date(s): 03/22/19 - 04/01/[address] [address]- [facility] Attending Physician: Bill Spencer Admitting Physician: Bill [...] 02/07/19 13:42:09 EST, Route to Pharmacy Electronically, [id number], [facility]/pharmacy #[id number], 151, cm, 02/07... Start Date: 02/07/19 Status: [...]
--- OUTSIDE RECORDS SUMMARY | 2022-09-30 19:22 | XMS_ITS | Continuity of Care Document ---
Author Name Unknown Organization [facility] Address [address] [place] [address]- Care Team Providers Care Rolled Oats Mill Operator Name Role Phone Jaymie Yeh MD Primary Care Physician [phone] [id number] Date(s): 12/08/20 - 04/07/[address] [address]- Attending Physician: Not on Staff, Attending MD [...]
--- OUTSIDE RECORDS SUMMARY | 2022-09-30 19:22 | XMS_ITS | Continuity of Care Document ---
Author Name Unknown Organization [facility] Adult Address [address] [place] [address]- Care Team Providers Care Car Sweeper Name Role Phone Jaymie Yeh MD Primary Care Physician En[place] [facility] Date(s): 05/27/22 - 06/26/[address] [address]- Allergies, Adverse Reactions, Alerts Substance Reaction Severity Status Benadryl Active Latex Active Peanuts Active Pineapple Active Seafood Active Immunizations Given and Recorded Vaccine Date Status Refusal Reason tetanus/diphtheria/pertussis, acel(Tdap) 01/15/19 Given Medications ferrous sulfate 325 mg oral enteric coated tablet 325 mg, 1, tablet, By Mouth, 2 times a day, # 180 tablet, Refills 1, Tot. Refills 1, Maintenance, 05/27/22 10:12:00 EDT, Route to Pharmacy Electronically, [facility]/pharmacy #[id number], Partial fill upon patient request if the [...] Care Physician Member Role: PCP Address: Address: [address] [place] [address]- Care Team Related Persons Name: ALETA HERNDON Address: home [address] [place] [address] Name: EDNA WALDRON Address: [place] [address] Name: ANANYA SUMMERSALYS Address: AMERCN Address: home [address] [place] [address]
--- OUTSIDE RECORDS SUMMARY | 2022-09-30 19:22 | XMS_ITS | Continuity of Care Document ---
Author Name Unknown Organization [facility] Adult Address [address] [place] [address]- Care Team Providers Care Data Technician Name Role Phone Ruba BARROS, Jaymie Primary Care Physician Encounter [facility] Date(s): 09/09/21 - 09/16/21 [facility] Adult [address] [place] [address]- Encounter Diagnosis Fatigue(Discharge Diagnosis) - 09/09/21 Attending Physician: Jaymie Yeh MD Allergies, Adverse [...] Active Noncompliance(Confirmed) Active Sickle cell trait(Confirmed) Active Diagnosis Diagnosis Type Effective Dates Health Status Clini ronn Service Informant Fatigue Discharge Diagnosis 09/09/21 Social History Social History Type Response Smoking Status Never (less than 100 in lifetime) entered on: 07/05/18 Sex Female
--- OUTSIDE RECORDS SUMMARY | 2022-09-30 19:22 | XMS_ITS | Continuity of Care Document ---
Author Name Unknown Organization [facility] Address [address] [place] [address]- Care Team Providers Care Sole Stitcher Hand Name Role Phone Ruba BARROS, Jaymie Primary Care Physician [phone] [id number] Date(s[facility] 06/02/20 - 06/09/20 [facility] [address] [place] [address]- Attending Physician: Wen High MD Referring Physician: Not on Staff, Referring MD Allergies, Adverse Reactions, Alerts Substance Reaction [...] 05/09/20 13:37:00 EST, Route to Pharmacy Electronically, [facility]/pharmacy #[id number], Partial fill upon patient request if the prescription is for a schedule II opioid drug.,... Start Date: 05/09/20 Status: Ordered triamcinolone 0.1% topical cream See Instructions, Topically 2 times a day, # 60 Gm, 0 Refills, Maintenance, 06/08/20 12:45:00 EDT, [id number], Partial fill upon patient [...]
--- OUTSIDE RECORDS SUMMARY | 2022-09-30 19:22 | XMS_ITS | Continuity of Care Document ---
Author Name Unknown Organization [facility] Address [address] [place] [address]- Care Team Providers Care Senior Nuclear Medicine Technologist Name Role Phone Jaymie Yeh MD Primary Care Physician [phone] Encounter [facility] [place] Date(s): 06/20/22 - 07/20/22 [facility] [address] [place] [address]- Allergies, Adverse Reactions, Alerts Substance Reaction Severity [...] Physician Member Role: PCP Address: Address: [address] [place] [address] 3rd Floor [place], [place] [address] Care Team Related Persons Name: ALETA HERNDON Address: home [address] [place] [address] Name: EDNA WALDRON Address: [facility] [place] [address] Name: MORENO SUMMERS Address: AMER[place] Address: home [address] [place] [address]
--- OUTSIDE RECORDS SUMMARY | 2022-09-30 19:22 | XMS_ITS | Continuity of Care Document ---
Author Name Unknown Organization [facility] Address [address] [place] [address]- Care Team Providers Care Property Assessment Monitor Name Role Phone Ruba BARROS, Jaymie Primary Care Physician En[place] [facility] [place] Date(s): 12/17/21 - 01/16/[address] [address]- Attending Physician: Bill Spencer Admitting Physician: Bill Spencer Referring Physician: AdmtrBill Allergies, Adverse Reactions, Alerts [...] Stop 03/05/22 8:31:00 EST, 03/03/21 8:31:00 EST, [facility]/pharmacy #[id number], 30, APPLY TO AFFECTED AREA TWICE A DAY, 151, cm, 03/02/21 9:46:00 EST, Height Start Date: 03/03/21 Stop Date: 03/05/22 Status: Ordered Problem List Condition Confirmation Course Effective Dates Status Health St [facility] Informant H/O Chlamydia Confirmed Active Dermatitis Confirmed Active Noncompliance Confirmed Active Sickle cell trait Confirmed Active Social History Social History Type Response Smoking Status Never (less than 100 in lifetime) entered on: 07/05/18 Sex Female Patient Care team information Care Team Personnel Name: Jaymie Yeh MD Position: [facility] Primary Care Physician Member Role: PCP Address: Address: [address] [place] [address] [address] [place] [address]- Care Team Related Persons Name: ALETA HERNDON Address: home [address] [place] [address] Name: EDNA WALDRON Address: [place] [address] Name: MORENO SUMMERS Address: AMERCN Address: home [address] [place] [address]
--- OUTSIDE RECORDS SUMMARY | 2022-09-30 19:22 | XMS_ITS | Continuity of Care Document ---
Author Name Unknown Organization [facility] Address [address] [place] [address]- Care Team Providers Care Lpn Private Duty Name Role Phone Not on Staff, PCP Primary Care Physician Unavail able Encounter [facility] Date(s): 02/06/19 - 04/21/[address] [address]- [facility] Attending Physician: Not on Staff, Attending MD [...] 02/07/19 13:42:09 EST, Route to Pharmacy Electronically, [id number], [facility]/pharmacy #[id number], 151, cm, 02/07... Start Date: 02/07/19 Status: [...]
--- OUTSIDE RECORDS SUMMARY | 2022-09-30 19:22 | XMS_ITS | Continuity of Care Document ---
Author Name Unknown Organization [facility] Address [address] [place] [address]- Care Team Providers Care Recreational Sports Director Name Role Phone Raheem [facility]ARROS, [facility] Primary [id number]04[facility] - 03/13/[address] [address]- [facility] Attending Physician: Not on Staff, Attending [...] 02/07/19 13:42:09 EST, Route to Pharmacy Electronically, [id number], [facility]/pharmacy #[id number], 151, cm, 02/07... Start Date: 02/07/19 Status: [...]
--- OUTSIDE RECORDS SUMMARY | 2022-09-30 19:22 | XMS_ITS | Continuity of Care Document ---
Author Name Unknown Organization [facility] Adult Address [address] [place] [address]- Care Team Providers Care Linux Unix Engineer Name Role Phone Jaymie Yeh MD Primary [id number] 05/09[facility] - 06/08/[address] [address]- Allergies, Adverse Reactions, Alerts Substance Reaction Severity [...] 05/27/22 10:12:00 EDT, Route to Pharmacy Electronically, [facility]/pharmacy #[id number], Partial fill upon patient request if the prescription is for a schedule II o... Start Date: 05/27/22 Status: Ordered Problem List Condition Confirmation Course Effective Dates Status [facility] Informant Dermatitis Confirmed Active Noncompliance Confirmed Active Sickle cell trait Confirmed Active Social History Social History Type Response Smoking Status Never (less than 100 in lifetime) entered on: 05/09/22 Sex Female Patient Care team information Care Team Personnel Name: Jaymie Yeh MD Position: S Primary Care Physician Member Role: PCP Address: Address: [address] [place] [address]- Care Team Related Persons Name: ALETA HERNDON Address: home [address] [place] [address] Name: EDNA WALDRON Address: [place] [address] Name: CARRIE SUMMERSJEREMY Address: AMERCN Address: home [address] [place] [address]
--- OUTSIDE RECORDS SUMMARY | 2022-09-30 19:22 | XMS_ITS | Continuity of Care Document ---
Author Name Unknown Organization [facility] Adult Address [address] [place] [address]- Care Team Providers Care On Air Talent Name Role Phone Ruba BARROS, Jaymie Primary Care Physician [place] [facility] [place] 02/23/21 - 03/25/21 [facility] Adult [address] [place], [place] [email or web address] Allergies, Adverse Reactions, [...]
--- OUTSIDE RECORDS SUMMARY | 2022-09-30 19:22 | XMS_ITS | Continuity of Care Document ---
Author Name Unknown Organization [facility] Adult Address [address] [place] [address]- Care Team Providers Care Nuclear Medical Technologist Name Role Phone Ruba BARROS, Jaymie Primary Care Physician Encounter [facility] Date(s): 08/24/20 - 09/23/20 [facility] Adult [address] [place] [address]- Allergies, Adverse Reactions, Alerts Substance Reaction Severity Status Benadryl Active Latex Active Peanuts Active Seafood Active Pineapple Active Immunizations Given and Recorded Vaccine Date Status Refusal Reason tetanus/diphtheria/pertussis, acel(Tdap) 01/15/19 Given Medications Diflucan 150 mg oral tablet 1 tablet = 150 mg, By Mouth, Once, # 1 tablet, 0 Refills, Soft Stop, 09/11/20 14:54:00 EDT, [facility]/pharmacy #[id number], Partial fill upon patient request if the prescription is for a schedule II opioid drug., 151, cm, 09/11/20 11:43:00 EDT, Height Start Date: 09/11/20 Status: Ordered Plan B One-Step 1.5 mg oral tablet 1.5 mg, 1, tablet, By Mouth, Once, # 1 tablet, Refills 0, Tot. Refills 0, Soft Stop, 05/09/20 13:37:00 EST, Route to Pharmacy Electronically, [facility]/pharmacy #[id number], Partial fill upon patient request if the prescription is for a schedule II opioid drug.,... Start Date: 05/09/20 Status: Ordered Plan B One-Step 1.5 mg oral tablet 1.5 mg, 1, tablet, By Mouth, Once, # 1 tablet, Refills 0, Tot. Refills 0, Soft Stop, 08/25/20 9:59:00 EDT, Route to Pharmacy Electronically, [facility]/pharmacy #[id number], Partial fill upon patient request if the prescription is for a schedule II opioid drug., 1... Start Date: 08/25/20 Status: Ordered triamcinolone 0.1% topical cream See Instructions, APPLY TO AFFECTED AREA TWICE A DAY, # 60 Gm, 0 Refills, Acute, [id number], 30, APPLY TO AFFECTED AREA TWICE A DAY, 151, cm, 03/26/20 12:26:00 EST, Height Start Date: 09/09/20 Status: Ordered Problem List Condition Effective Dates Status Health Status Inform ant H/O Chlamydia(Confirmed) Active Dermatitis(Confirmed) Active Noncompliance(Confirmed) Active Sickle cell trait(Confirmed) Active Social History Social History Type Response Smoking Status Never (less than 100 in lifetime) entered on: 07/05/18 Sex Female
--- OUTSIDE RECORDS SUMMARY | 2022-09-30 19:22 | XMS_ITS | Continuity of Care Document ---
Author Name Unknown Organization [facility] Adult Address [address] [place] [address]- Care Team Providers Care Sponge Hooker Name Role Phone Ruba BARROS, Jaymie Primary Care Physician Encounter [facility] Date(s): 09/15/20 - 12/03/20 [facility] Adult [address] [place] [address]- Attending Physician: Jaymie Yeh MD Allergies, Adverse Reactions, Alerts Substance Reaction Severity Status Benadryl Active Latex Active Peanuts Active Seafood Active Pineapple Active Immunizations Given and Recorded Vaccine Date Status Refusal Reason tetanus/diphtheria/pertussis, acel(Tdap) 01/15/19 Given Medications Diflucan 150 mg oral tablet 1 tablet = 150 mg, By Mouth, Once, # 1 tablet, 0 Refills, Soft Stop, 09/11/20 14:54:00 EDT, [facility]/pharmacy #[id number], Partial fill upon patient request if the prescription is for a schedule II opioid drug., 151, cm, 09/11/20 11:43:00 EDT, Height Start Date: 09/11/20 Status: Ordered Plan B One-Step 1.5 mg oral tablet 1.5 mg, 1, tablet, By Mouth, Once, # 1 tablet, Refills 0, Tot. Refills 0, Soft Stop, 05/09/20 13:37:00 EST, Route to Pharmacy Electronically, [facility]/pharmacy #[id number], Partial fill upon patient request if the prescription is for a schedule II opioid drug.,... Start Date: 05/09/20 Status: Ordered Plan B One-Step 1.5 mg oral tablet 1.5 mg, 1, tablet, By Mouth, Once, # 1 tablet, Refills 0, Tot. Refills 0, Soft Stop, 08/25/20 9:59:00 EDT, Route to Pharmacy Electronically, [facility]/pharmacy #[id number], Partial fill upon patient request if the prescription is for a schedule II opioid drug., 1... Start Date: 08/25/20 Status: Ordered triamcinolone 0.1% topical cream See Instructions, APPLY TO AFFECTED AREA TWICE A DAY, # 60 Gm, 0 Refills, Acute, [facility] STORE [id number], 30, APPLY TO AFFECTED AREA TWICE A [...]
--- OUTSIDE RECORDS SUMMARY | 2022-09-30 19:22 | XMS_ITS | Continuity of Care Document ---
Author Name Unknown Organization [facility] Adult Address [address] [place] [address]- Care Team Providers Care Beauty Therapist Name Role Phone Ruba BARROS, Jaymie Primary Care Physician En[place] [facility] [place] Date(s): 08/19/20 - 09/18/20 [facility] Adult [address] [place] [address]- Allergies, Adverse Reactions, Alerts Substance Reaction Severity Status Benadryl Active Latex Active Peanuts Active Seafood Active Pineapple Active Immunizations Given and Recorded Vaccine Date Status Refusal Reason tetanus/diphtheria/pertussis, acel(Tdap) 01/15/19 Given Medications Diflucan 150 mg oral tablet 1 tablet = 150 mg, By Mouth, Once, # 1 tablet, 0 Refills, Soft Stop, 09/11/20 14:54:00 EDT, [facility]/pharmacy #[id number], Partial fill upon patient request if the prescription is for a schedule II opioid drug., 151, cm, 09/11/20 11:43:00 EDT, Height Start Date: 09/11/20 Status: Ordered Plan B One-Step 1.5 mg oral tablet 1.5 mg, 1, tablet, By Mouth, Once, # 1 tablet, Refills 0, Tot. Refills 0, Soft Stop, 05/09/20 13:37:00 EST, Route to Pharmacy Electronically, [facility]/pharmacy #[id number], Partial fill upon patient request if the prescription is for a schedule II opioid drug.,... Start Date: 05/09/20 Status: Ordered Plan B One-Step 1.5 mg oral tablet 1.5 mg, 1, tablet, By Mouth, Once, # 1 tablet, Refills 0, Tot. Refills 0, Soft Stop, 08/25/20 9:59:00 EDT, Route to Pharmacy Electronically, [facility]/pharmacy #[id number], Partial fill upon patient request if the prescription is for a schedule II opioid drug., 1... Start Date: 08/25/20 Status: Ordered triamcinolone 0.1% topical cream See Instructions, APPLY TO AFFECTED AREA TWICE A DAY, # 60 Gm, 0 Refills, Acute, [id number], 30, APPLY TO AFFECTED AREA TWICE A [...]
--- OUTSIDE RECORDS SUMMARY | 2022-09-30 19:22 | XMS_ITS | Continuity of Care Document ---
Author Name Unknown Organization [facility] Adult Address [address] [place] [address]- Care Team Providers Care Senior Developer Name Role Phone Ruba BARROS, Jaymie Primary Care Physician [id number] - 04/[facility]/20 [facility] Adult [address] [place] [address]- Encounter Diagnosis Dermatitis(Discharge Diagnosis) - 03/29/20 Sickle cell trait(Discharge Diagnosis) - 03/29/20 Attending Physician: Jaymie Yeh MD Allergies, Adverse Reactions, Alerts Substance Reaction Severity Status Benadryl Active Latex Active Peanuts Active Pineapple Active Seafood Active Immunizations Given and Recorded Vaccine Date Status Refusal Reason tetanus/diphtheria/pertussis, acel(Tdap) 01/15/19 Given Medications triamcinolone 0.1% topical cream See Instructions, Topically 2 times a day, # 60 Gm, 0 Refills, Maintenance, 03/26/20 15:44:00 [facility]/pharmacy #1001, Partial fill upon patient request if the prescription is for a schedule II opioid drug., Topically 2 times a day, 151, cm, 03/26/20... Start Date: 03/26/20 Status: Ordered Problem List Condition Effective Dates Status Health Status Inform ant H/O Chlamydia(Confirmed) Active Dermatitis(Confirmed) Active Noncompliance(Confirmed) Active Sickle cell trait(Confirmed) Active Diagnosis Diagnosis Type Effective Dates Health Status Clinical Service Informant Dermatitis Discharge Diagnosis 03/29/20 Sickle cell trait Discharge Diagnosis 03/29/20 Vital Signs Most recent to oldest [Reference Range]: 1 Height 151 cm (03/26/20 12:26 PM) Social History Social History Type Response Smoking Status Never (less than 100 in lifetime) entered on: 07/05/18 Sex Female
--- OUTSIDE RECORDS SUMMARY | 2022-09-30 19:23 | XMS_ITS | Continuity of Care Document ---
Author Name Unknown Organization [facility] Address [address] [address]- Care Team Providers Care Hse Advisor Name Role Phone Ruba BARROS, Jaymie Primary Care Physician [phone] Encounter [facility] [id number] Date(s): 04/01/20 - 05/16/20 [facility] [address] [address] Attending Physician: Not on Staff, Attending MD Referring Physician: Jaymie Yeh MD Allergies, [...] 05/09/20 13:37:00 EST, Route to Pharmacy Electronically, [facility]/pharmacy #[id number], Partial fill upon patient request if the prescription is for a schedule II opioid drug.,... Start Date: 05/09/20 Status: Ordered triamcinolone 0.1% topical cream See Instructions, Topically 2 times a day, # 60 Gm, 0 Refills, Maintenance, 03/26/20 15:44:00 EST, [facility]/pharmacy #[id number], Partial fill upon patient request [...]
--- OUTSIDE RECORDS SUMMARY | 2022-09-30 19:23 | XMS_ITS | Continuity of Care Document ---
Author Name Unknown Organization [facility] Address [address] [place] [address]- Care Team Providers Care Ultrasound Technologist Sonographer Name Role Phone Ruba BARROS, Jaymie Primary Care Physician Encounter [facility] Date(s): 12/20/21 - 01/19/[address] [address] Allergies, Adverse Reactions, Alerts Substance Reaction [...] Team Personnel Name: Jaymie Yeh MD Position: [facility] Primary Care Physician Member Role: PCP Address: Address: [address] [place] [address] [address]rd [address] [place], [place] [address] Care Team Related Persons Name: ALETA HERNDON Address: home [address] [place] [address] Name: EDNA WALDRON Address: [place] [address] Name: MORENO SUMMERS Address: AMER[employer] Address: home [address] [place] [address]
--- OUTSIDE RECORDS SUMMARY | 2022-09-30 19:23 | XMS_ITS | Continuity of Care Document ---
Author Name Unknown Organization [facility] Address [address] [place] [address]- Care Team Providers Care Sales Project Administrator Name Role Phone Ruba BARROS, Jaymie Primary Care Physician [id number] Date(s): 04/16/20 - 05/16/20 [facility] and [address] [address] Attending Physician: Bill Spencer Admitting Physician: AdmBill lennon Referring Physician: AdmBill lennon Allergies, Adverse Reactions, Alerts Substance Reaction Severity [...] 13:37:00 EST, Route to Pharmacy Electronically, [facility]/pharmacy #[id number], Partial fill upon patient request if the prescription is for a schedule II opioid drug.,... Start Date: 05/09/20 Status: Ordered triamcinolone 0.1% topical cream See Instructions, Topically 2 times a day, # 60 Gm, 0 Refills, Maintenance, 03/26/20 15:44:00 EST, [facility]/pharmacy #[id number], Partial fill upon patient request if [...]
--- OUTSIDE RECORDS SUMMARY | 2022-09-30 19:23 | XMS_ITS | Continuity of Care Document ---
Author Name Unknown Organization [facility] Adult Address [address] [place] [address]- Care Team Providers Care Research Professional Name Role Phone Ruba BARROS, [facility] Primary Care Physician [facility] [id number] Date(s): 09/11/20 - 09/18/20 [facility] Adult [address] [place] [address]- Encounter Diagnosis Vaginal candidiasis(Discharge Diagnosis) - 09/11/20 Attending Physician: Raheem BARROS, [facility] Allergies, Adverse Reactions, Alerts Substance Reaction Severity Status Benadryl Active Latex Active Peanuts Active Seafood Active Pineapple Active Immunizations Given and Recorded Vaccine Date Status Refusal Reason tetanus/diphtheria/pertussis, acel(Tdap) 01/15/19 Given Medications Diflucan 150 mg oral tablet 1 tablet = 150 mg, By Mouth, Once, # 1 tablet, 0 Refills, Soft Stop, 09/11/20 14:54:00 EDT, [facility]/pharmacy #[id number], Partial fill upon patient request if the prescription is for a schedule II opioid drug., 151, cm, 09/11/20 11:43:00 EDT, Height Start Date: 09/11/20 Status: Ordered Plan B One-Step 1.5 mg oral tablet 1.5 mg, 1, tablet, By Mouth, Once, # 1 tablet, Refills 0, Tot. Refills 0, Soft Stop, 05/09/20 13:37:00 EST, Route to Pharmacy Electronically, [facility]/pharmacy #[id number], Partial fill upon patient request if the prescription is for a schedule II opioid drug.,... Start Date: 05/09/20 Status: Ordered Plan B One-Step 1.5 mg oral tablet 1.5 mg, 1, tablet, By Mouth, Once, # 1 tablet, Refills 0, Tot. Refills 0, Soft Stop, 08/25/20 9:59:00 EDT, Route to Pharmacy Electronically, [facility]/pharmacy #[id number], Partial fill upon patient request if the prescription is for a schedule II opioid drug., 1... Start Date: 08/25/20 Status: Ordered triamcinolone 0.1% topical cream See Instructions, APPLY TO AFFECTED AREA TWICE A DAY, # 60 Gm, 0 Refills, Acute, [facility] 9[facility], 30, APPLY TO AFFECTED AREA TWICE A DAY, 151, cm, 03/26/20 12:26:00 EST, Height Start Date: 09/09/20 Status: Ordered Problem List Condition Effective Dates Status Health Status Inform ant H/O Chlamydia(Confirmed) Active Dermatitis(Confirmed) Active Noncompliance(Confirmed) Active Sickle cell trait(Confirmed) Active Diagnosis Diagnosis Type Effective Dates Health Status Clinical Service Informant Vaginal candidiasis Discharge Diagnosis 09/11/20 Vital Signs Most recent to oldest [Reference Range]: 1 Height 151 cm (09/11/20 11:43 AM) Social History Social History Type Response Smoking Status Never (less than 100 in lifetime) entered on: 07/05/18 Sex Female
--- OUTSIDE RECORDS SUMMARY | 2022-09-30 19:23 | XMS_ITS | Continuity of Care Document ---
Author Name Unknown Organization [facility] Adult Address [address] [place] [address]- Care Team Providers Care Member Of Parliament Name Role Phone Ruba BARROS, Jaymie Primary Care Physician [place] [facility] - 07/22/[address] [address]- Allergies, Adverse Reactions, Alerts Substance Reaction Severity [...] 13:37:00 EST, Route to Pharmacy Electronically, [facility]/pharmacy #[id number], Partial fill upon patient request if the prescription is for a schedule II opioid drug.,... Start Date: 05/09/20 Status: Ordered Plan B One-Step 1.5 mg oral tablet 1.5 mg, 1, tablet, By Mouth, Once, # 1 tablet, Refills 0, Tot. Refills 0, Soft Stop, 06/22/20 16:29:00 EDT, Route to Pharmacy Electronically, [facility]/pharmacy #[id number], Partial fill upon patient request if the prescription is for a schedule II opioid drug.,... Start Date: 06/22/20 Status: Ordered triamcinolone 0.1% topical cream See Instructions, Topically 2 times a day, # 60 Gm, 0 Refills, Maintenance, 07/15/20 15:02:00 EDT, [facility]/pharmacy #[id number], Partial fill upon patient request if the [...]
--- OUTSIDE RECORDS SUMMARY | 2022-09-30 19:23 | XMS_ITS | Continuity of Care Document ---
Author Name Unknown Organization [facility] Adult Address [address] [place] [address]- Care Team Providers Care Railroad Signal Operator Name Role Phone Jaymie Yeh MD Primary Care Physician [place] [facility] [place](s): 05/09/22 - 05/16/22 [facility] Adult [address] [place] [address]- Encounter Diagnosis Well adult exam(Discharge Diagnosis) - 05/09/22 Fatigue(Discharge Diagnosis) - 05/09/22 Dermatitis(Discharge Diagnosis) - 05/09/22 Sickle cell trait(Discharge Diagnosis) - 05/09/22 Attending Physician: Jaymie Yeh MD Allergies, Adverse Reactions, Alerts Substance Reaction Severity Status Benadryl Active Latex Active Peanuts Active Seafood Active Pineapple Active Immunizations Given and Recorded Vaccine Date Status Refusal Reason tetanus/diphtheria/pertussis, acel(Tdap) 01/15/19 Given Medications No Known Medications Problem List Condition Confirmation Course Effective Dates Status Health St atus Informant H/O Chlamydia Confirmed Active Dermatitis Confirmed Active Noncompliance Confirmed Active Sickle cell trait Confirmed Active Diagnosis Diagnosis Type Effective Dates Health Status Clinical Service Informant Well adult exam Discharge Diagnosis 05/09/22 Fatigue Discharge Diagnosis 05/09/22 Dermatitis Discharge Diagnosis 05/09/22 Sickle cell trait Discharge Diagnosis 05/09/22 Vital Signs Most recent to oldest [Reference Range]: 1 Height 151.2 cm (05/09/22 10:29 AM) Weight 62.9 kg (05/09/22 10:29 AM) Oxygen Saturation [94-100 %] 100 % (05/09/22 10:29 AM) Pulse Rate [55-90 bpm] 81 bpm (05/09/22 10:29 AM) Body Mass Index [18.5-24.99 kg/m2] 27.51 kg/m2 *H* (05/09/22 10:29 AM) Blood Pressure [90-138/55-84 mm Hg] 100/ 54mm Hg (05/09/22 10:29 AM) Temperature [96.8-100.4 DegF] 98.4 DegF (05/09/22 10:29 AM) Mode of Delivery (Oxygen) Room air (05/09/22 10:29 AM) Blood pressure sites Arm, left (05/09/22 10:29 AM) Temperature Route Oral (05/09/22 10:29 AM) Weight Obtained Via Standing scale (05/09/22 10:29 AM) Social History Social History Type Response Smoking Status Never (less than 100 in lifetime) entered on: 05/09/22 Sex Female Note * Mini Gutierrez: PERFORM, SIGN, VERIFY Event Display: Patient Education/Instruction Authored Date: [id number] [facility] *[facility] [place] [facility] Clinical Summary Name DIONY WALDRON Age 26 Years 1995 PCP Ruba BARROS, Jaymie PCP Visit Date 05/09/2022 10:23:00 Additional Instructions: Scheduled Appointments?? Future Appointments ?No Future Appointments Scheduled Follow-Up Instructions ?? Diagnosis Other fatigue; Dermatitis, unspecified; Encounter for general adult medical examination without abnormal findings; Sickle-cell trait Medications: Please continue your medications until treatment is completed or stopped by your provider. Discuss any questions related to medications with your provider. No Longer Take the Following Medications Ethinyl Estradiol-Levonorgestrel (Aviane 100 mcg-20 mcg oral tablet) 1 tab(s) Oral Daily. Refills: 3. Fluconazole (Diflucan 150 mg oral tablet) 1 tab(s) Oral once. Refills: 0. Allergy Info:?? Pineapple; Seafood; Peanuts; Latex; Benadryl Medications Given This Visit Future Orders ?Chlamydia/N. Gonorrhoeae TMA (NAAT)? Order Date:05/09/22?- Complete on or after?05/09/22 Vital Signs Height 151.2 cm Weight 62.9 kg BMI 27.51 kg/m2 Blood Pressure 100 mm Hg/54 mm Hg Temperature 98.4 DegF Pulse Rate 81 bpm Respiratory Rate 02 Sat Mode of Delivery 100 %/Room air You can now view a summary of your hospital visit from the comfort of your home through a free online portal called [employer]. [employer] is a website that allows you to securely view your medical information including discharge summary, medications and follow-up visits. ??You can alsosend a secure electronic message to your doctor???s office to request appointments, renew medications or just ask a question. You can enroll at [email or web address] or register during your next office visit. Disclaimer:?? The information provided is of a general nature and is intended to be used in conjunction with the recommendations and advice of your health care practitioner. ??Every effort has been made to ensure that the information provided is accurate and complete at the time it is provided to you however, as your needs change, or, as new ??information becomes available, different or additional instructions may be required. If you have questions, please consult with your primary care provider or pharmacist, as appropriate. ??This information is not intended to serve as substitution for assessment and evaluation by a qualified health care provider. If you do not have a primary care provider, you may find a [facility] provider by calling [facility] [employer] at [phone]. For information about the plan of care including goals and instructions for your diagnosis, please see the patient education orders section of this document. Patient Education Materials?? The content of this educational material or handout may have been modified, supplemented, or adapted from its original content and format to support your individualized medical care. Patient Care team information Care Team Personnel Name: Jaymie Yeh MD Position: S Primary Care Physician Member Role: PCP Address: [address] [place] [address]- Care Team Related Persons Name: ALETA HERNDON Address: home [address] [address] Name: EDNA WALDRON Address: [place] [address] Name: MORENO SUMMERS Address: [employer] Address: home [address] [place] [address]
--- OUTSIDE RECORDS SUMMARY | 2022-09-30 19:23 | XMS_ITS | Continuity of Care Document ---
Author Name Unknown Organization [facility] Adult Address [address] [place] [address]- Care Team Providers Care Lean Manufacturing Specialist Name Role Phone Ruba BARROS, Jaymie Primary Care Physician En[place] [facility] [place] Date(s): 09/08/20 - 10/08/20 [facility] Adult [address] [place] [address]- Allergies, Adverse Reactions, Alerts Substance Reaction Severity Status Benadryl Active Latex Active Peanuts Active Seafood Active Pineapple Active Immunizations Given and Recorded Vaccine Date Status Refusal Reason tetanus/diphtheria/pertussis, acel(Tdap) 01/15/19 Given Medications Diflucan 150 mg oral tablet 1 tablet = 150 mg, By Mouth, Once, # 1 tablet, 0 Refills, Soft Stop, 09/11/20 14:54:00 EDT, [facility]/pharmacy #[id number], Partial fill upon patient request if the prescription is for a schedule II opioid drug., 151, cm, 09/11/20 11:43:00 EDT, Height Start Date: 09/11/20 Status: Ordered Plan B One-Step 1.5 mg oral tablet 1.5 mg, 1, tablet, By Mouth, Once, # 1 tablet, Refills 0, Tot. Refills 0, Soft Stop, 05/09/20 13:37:00 EST, Route to Pharmacy Electronically, [facility]/pharmacy #[id number], Partial fill upon patient request if the prescription is for a schedule II opioid drug.,... Start Date: 05/09/20 Status: Ordered Plan B One-Step 1.5 mg oral tablet 1.5 mg, 1, tablet, By Mouth, Once, # 1 tablet, Refills 0, Tot. Refills 0, Soft Stop, 08/25/20 9:59:00 EDT, Route to Pharmacy Electronically, [facility]/pharmacy #[id number], Partial fill upon patient request if the prescription is for a schedule II opioid drug., 1... Start Date: 08/25/20 Status: Ordered triamcinolone 0.1% topical cream See Instructions, APPLY TO AFFECTED AREA TWICE A DAY, # 60 Gm, 0 Refills, Acute, [id number], 30, APPLY TO AFFECTED AREA TWICE A [...]
--- OUTSIDE RECORDS SUMMARY | 2022-09-30 19:23 | XMS_ITS | Continuity of Care Document ---
Author Name Unknown Organization [facility] Adult Address [address] [place] [address]- Care Team Providers Care Shorthand Reporter Name Role Phone Ruba BARROS, Jaymie Primary Care Physician [phone] Encounter [facility] [place] Date(s): 08/07/20 - 09/06/20 [facility] Adult [address] [place] [phone]- Allergies, Adverse Reactions, Alerts Substance Reaction Severity Status Benadryl Active Latex Active Peanuts Active Seafood Active Pineapple Active Immunizations Given and Recorded Vaccine Date Status Refusal Reason tetanus/diphtheria/pertussis, acel(Tdap) 01/15/19 Given Medications Plan B One-Step 1.5 mg oral tablet 1.5 mg, 1, tablet, By Mouth, Once, # 1 tablet, Refills 0, Tot. Refills 0, Soft Stop, 05/09/20 13:37:00 EST, Route to Pharmacy Electronically, [facility]/pharmacy #[id number], Partial fill upon patient request if the prescription is for a schedule II opioid drug.,... Start Date: 05/09/20 Status: Ordered Plan B One-Step 1.5 mg oral tablet 1.5 mg, 1, tablet, By Mouth, Once, # 1 tablet, Refills 0, Tot. Refills 0, Soft Stop, 08/25/20 9:59:00 EDT, Route to Pharmacy Electronically, [facility]/pharmacy #[id number], Partial fill upon patient request if the prescription is for a schedule II opioid drug., 1... Start Date: 08/25/20 Status: Ordered triamcinolone 0.1% topical cream See Instructions, Topically 2 times a day, # 60 Gm, 0 Refills, Maintenance, 08/20/20 10:02:00 EDT, [facility]/pharmacy #[id number], Partial fill upon patient request if the prescription is for a schedule II opioid drug., Topically 2 times a day, 151, cm, 03/26/20... Start Date: 08/20/20 Status: Ordered Problem List Condition Effective Dates Status Health Status Inform ant H/O Chlamydia(Confirmed) Active Dermatitis(Confirmed) Active Noncompliance(Confirmed) Active Sickle cell trait(Confirmed) Active Social History Social History Type Response Smoking Status Never (less than 100 in lifetime) entered on: 07/05/18 Sex Female
--- OUTSIDE RECORDS SUMMARY | 2022-09-30 19:23 | XMS_ITS | Continuity of Care Document ---
Author Name Unknown Organization [facility] Adult Address [address] [place] [address]- Care Team Providers Care Oven Operator Name Role Phone Jaymie Yeh MD Primary Care Physician En[place] [facility] [place] Date(s): 10/29/20 - 11/28/20 [facility] Adult [address] [place] [address]- Allergies, Adverse Reactions, Alerts Substance Reaction Severity Status Benadryl Active Latex Active Peanuts Active Seafood Active Pineapple Active Immunizations Given and Recorded Vaccine Date Status Refusal Reason tetanus/diphtheria/pertussis, acel(Tdap) 01/15/19 Given Medications Diflucan 150 mg oral tablet 1 tablet = 150 mg, By Mouth, Once, # 1 tablet, 0 Refills, Soft Stop, 09/11/20 14:54:00 EDT, [facility]/pharmacy #[id number], Partial fill upon patient request if the prescription is for a schedule II opioid drug., 151, cm, 09/11/20 11:43:00 EDT, Height Start Date: 09/11/20 Status: Ordered Plan B One-Step 1.5 mg oral tablet 1.5 mg, 1, tablet, By Mouth, Once, # 1 tablet, Refills 0, Tot. Refills 0, Soft Stop, 05/09/20 13:37:00 EST, Route to Pharmacy Electronically, [facility]/pharmacy #[id number], Partial fill upon patient request if the prescription is for a schedule II opioid drug.,... Start Date: 05/09/20 Status: Ordered Plan B One-Step 1.5 mg oral tablet 1.5 mg, 1, tablet, By Mouth, Once, # 1 tablet, Refills 0, Tot. Refills 0, Soft Stop, 08/25/20 9:59:00 EDT, Route to Pharmacy Electronically, [facility]/pharmacy #[id number], Partial fill upon patient request if the prescription is for a schedule II opioid drug., 1... Start Date: 08/25/20 Status: Ordered triamcinolone 0.1% topical cream See Instructions, APPLY TO AFFECTED AREA TWICE A DAY, # 60 Gm, 0 Refills, Acute, [id number], 30, APPLY TO AFFECTED AREA TWICE A [...]
--- OUTSIDE RECORDS SUMMARY | 2022-09-30 19:23 | XMS_ITS | Continuity of Care Document ---
Author Name Unknown Organization [facility] Adult Address [address] [place] [address]- Care Team Providers Care Jira Administrator Name Role Phone Ruba BARROS, Jaymie Primary Care Physician [place] [facility] [place] 09/09/21 - 10/09/21 [facility] Adult [address] [place] [address]- Attending Physician: Bill Spencer Admitting Physician: AdmtrBill Referring Physician: Admtr ArDayanara Allergies, Adverse Reactions, Alerts Substance Reaction Severity [...]
--- OUTSIDE RECORDS SUMMARY | 2022-09-30 19:23 | XMS_ITS | Continuity of Care Document ---
Author Name Unknown Organization [facility] Address [address] [place] [address]- Care Team Providers Care Meal Temperer Name Role Phone Romel Maciel MDst. [facility] Primary Care Physician ( [phone] Encounter [facility] [place] Date(s): 01/15/19 - 02/22/[address] [address] Attending Physician: Not on Staff, Attending MD [...] 02/07/19 13:42:09 EST, Route to Pharmacy Electronically, [id number], [facility]/pharmacy #[id number], 151, cm, 02/07... Start Date: 02/07/19 Status: Ordered ibuprofen 600 mg oral tablet 600 mg, 1, tablet, By Mouth, Every 6 hours, # 30 tablet, Refills 0, Tot. Refills 0, Acute 03/01/19 0:00:00 EST, 02/07/19 13:42:15 EST, Route to Pharmacy Electronically, [id number], [facility]/pharmacy #[id number], 151, cm, 02/07/19 8:59:3... Start Date: [...] 02/07/19 13:42:26 EST, Route to Pharmacy Electronically, [id number], [facility]/pharmacy #[id number], 151, cm,... Start Date: 02/07/19 Stop [...]
== END 2022-09-30 20:10 | disposition home or self-care (01) ==
PROVIDERS: Emergency Provider Emergency Medicine
DX: R21 Rash and other nonspecific skin eruption (principal); B95.8 Unspecified staphylococcus as the cause of diseases classified elsewhere; Z79.899 Other long term (current) drug therapy
CPT/HCPCS: 99282; 99283

== ENCOUNTER 2023-02-07 13:07 | Emergency (ER) | payer OTHER, SELFPAY ==
--- NOTE | 2023-02-07 13:51 | ED_ITS ---
HPI - General Adult General Chief complaint: Upper Respiratory Symptoms Stated complaint: Cough/Body aches/Fever Time Seen by Provider: 02/07/23 14:32 Source: patient Mode of arrival: ambulatory Limitations: no limitations History of Present Illness HPI narrative: Patient is a 27-year-old female presenting to the emergency department with complaint of headache, body aches, chills for 2 days. Also has a productive cough and sneezing. Did not check temp with thermometer. Reports nausea but denies vomiting or diarrhea. MD complaint: body aches Onset (ago): day(s) Severity: moderate Quality: aching Pain Consistency: constant Relieving factors: rest Exacerbating factors: movement Associated symptoms: cough, fever/chills and headaches Treatments prior to arrival: none Related Data Previous Rx's Medication Instructions Recorded doxycycline monohydrate 100 mg 100 mg PO BID #14 caps 08/26/20 capsule doxycycline monohydrate 100 mg 100 mg PO BID #20 tabs 12/22/21 tablet cephalexin 500 mg capsule 500 mg PO Q6H 7 days #28 caps 09/30/22 benzonatate 100 mg capsule 100 mg PO TID PRN cough #14 caps 02/07/23 ibuprofen 600 mg tablet 600 mg PO Q6H PRN fever or pain 02/07/23 #20 tabs Allergies Allergy/AdvReac Type Severity Reaction Status Date / Time peanut [PEANUT] Allergy Severe DIFFICULTY Verified 05/20/21 14:43 BREATHING diphenhydramine Allergy Unknown Unknown Verified 05/20/21 14:43 [From BENADRYL] pineapple [PINEAPPLE] Allergy Unknown UNKNOWN Verified 05/20/21 14:43 Latex, Natural Rubber Allergy Itching Verified 09/30/22 18:57 SEAFOOD Allergy Severe DIFFICULTY Uncoded 05/20/21 14:43 BREATHING All sea foods Allergy Intermediate itching Uncoded 05/20/21 14:43 Review of Systems Review of Systems: As per HPI. Yes all other systems are reviewed and are negative Constitutional: Constitutional: Reports as per HPI PMFSH Past Medical History Medical History Anxiety Surgical History History of delivery Social History Social History Patient Tobacco Use Status: Never used Tobacco Advance Directives: No Physical Exam ED Vital Signs: Vital Signs - 24 hr 02/07/23 13:52 Temperature 99.9 F Pulse Rate 91 Respiratory Rate 18 Blood Pressure 118/69 Pulse Oximetry 98 Oxygen Delivery Method Room Air BMI result Body Mass Index 28.4 Vital signs have been reviewed and appear to be correct. Blood pressure normal. Heart rate normal. Respiratory rate normal. Temperature normal. Oxygen saturation normal. Const General: cooperative, healthy appearing and no acute distress Orientation/consciousness: oriented to person, oriented to place, oriented to time and patient oriented x3 Limitations: no limitations HENMT Head: Yes normocephalic and Yes atraumatic Ears: external ears normal and TM's normal bilaterally General nose exam: Normal external nose present Face and sinus: Yes face symmetric Mouth: oropharynx normal and moist mucous membranes Throat: Yes uvula midline Eyes Pupils: Equal, round and reactive pupils present Neck Neck: Yes normal visual inspection and Yes supple Lymphatic: no lymphadenopathy noted Resp Effort & Inspection: normal respiratory effort and able to speak in complete sentences Auscultation: clear to auscultation bilaterally Cardio Rate: regular rate Rhythm: regular rhythm Heart sounds: S1 normal heart sound present and S2 normal heart sound present GI Palpation (GI): Soft to palpation and nontender Auscultation: normoactive bowel sounds General: Yes no CVA tenderness Back/Spine/Pelvis Back: no CVA tenderness Skin General skin exam: elasticity normal and turgor normal Neuro General: oriented to person, oriented to place, oriented to time, patient oriented x3, moves all extremities, no focal motor deficits and CN's II-XI intact bilaterally Cranial nerves: Yes Equal, round and reactive pupils present Cognition (Neuro): normal cognition Extrem General: Yes full ROM, Yes no pedal edema and Yes no calf tenderness Psych Mental Status: mental status grossly normal Affect: normal affect Thought process: Normal thought process present Medical Decision Making Medical Decision Making MDM Narrative: Patient is a 27-year-old female presenting to the emergency department with complaint of headache, body aches, chills for 2 days. On exam patient is awake, A+Ox3, VS WNL, afebrile, normal neurological exam without focal deficits, physical exam findings as above. Given reported symptoms and physical exam findings, initial differential includes viral illness, covid, flu, strep pharyngitis. Covid swab positive. Patient updated on results and all questions answered. Offered treatment with Paxlovid which patient declined. Will prescribe ibuprofen and benzonatate. Advised patient to isolate at home for the next 4 days, and continue to wear a mask until asymptomatic. Return precautions discussed. Instructed patient follow-up with primary care provider. Patient verbalized understanding of and agreement with plan. Differential Diagnosis Differential Diagnoses: The differential diagnosis associated with the presentation includes As per [facility] Lab Data [facility] Lab Attestation statement: I reviewed the patient's lab results. As per [facility] Labs: Lab Results 02/07/23 Range/Units 14:09 COVID-19 (NITHYA) Positive A (Negative) COVID-19 Clin Com See Note Influenza Type A (NED) Negative (Negative) Influenza Type B (NED) Negative (Negative) Influenza A & B Note See Note S. pyogenes GrpA NED Negative (Negative) External Record Review External record reviewed: Inpatient record, Office record and Outpatient record Prescription Management I considered prescription management with: Antiviral and Other Discharge Plan Discharge Clinical Impression: COVID-19 Patient Disposition: Home, Self-Care Instructions: Covid-19 Viral Syndrome and Novel Coronavirus (ED) Hey/Ath, COVID-19 (Coronavirus Disease 2019) (ED) Additional Instructions: You were evaluated in the emergency department today for body aches, cough, fever. Your COVID test was resulted as positive. You should continue to isolate at home for another 4 days. You should continue to wear mask for 5 days after that. You were offered treatment with Paxlovid which you declined. If you change your mind within the next 48 hours, contact your primary care provider to discuss this treatment. Return to the emergency department with worsening shortness of breath, chest pain, fever that does not improve with Tylenol or ibuprofen, persistent vomiting, or any other concerning symptoms. You should follow-up with your primary care provider. Prescriptions: New ibuprofen 600 mg tablet 600 mg PO Q6H PRN (Reason: fever or pain) Qty: 20 0RF benzonatate 100 mg capsule 100 mg PO TID PRN (Reason: cough) Qty: 14 0RF No Action doxycycline monohydrate 100 mg capsule 100 mg PO BID Qty: 14 0RF doxycycline monohydrate 100 mg tablet 100 mg PO BID Qty: 20 0RF cephalexin 500 mg capsule 500 mg PO Q6H 7 Days Qty: 28 0RF Stand Alone Forms: Work/School Release Interventions: ED Discharge Assessment Last Done: 02/07/23 14:51
[2023-02-07 13:52] VITALS: BP 118/69; PULSE 91; RESP 18; TEMP 37.7; O2SAT 98; BMI 28.4
[2023-02-07 14:29] LABS: COVID-19 Test Positive (Negative); IDNOW Serial# 08D9AD1C; IDNOW Serial# BCCEAD1C; Strep A Nucleic Acid Negative (Negative)
[2023-02-07 14:37] LABS: IDNOW Serial# 9DB6401D; Influenza A Negative (Negative); Influenza B2 Negative (Negative)
--- OUTSIDE RECORDS SUMMARY | 2023-02-07 14:40 | XMS_ITS | Continuity of Care Document ---
Author Name Unknown Organization [facility] Address [address] [place] [address]- Care Team Providers Care Cotton Weigher Operator Name Role Phone Jaymie Yeh MD Primary Care Physician [id number] Date[facility] 10/26/22 - 12/08/[address] [address]- Attending Physician: Not on Staff, Attending MD Allergies, Adverse Reactions, Alerts Substance Reaction Severity Status Benadryl Active Latex Active Pineapple Active Peanuts Active Seafood Active Immunizations Given and Recorded Vaccine Date Status Refusal Reason tetanus/diphtheria/pertussis, acel(Tdap) 01/15/19 Given Medications triamcinolone 0.1% topical cream See Instructions, APPLY TO AFFECTED AREA TWICE A DAY, # 60 Gm, 0 Refills, Maintenance, 10/17/22 9:30:00 EDT, [id number], 60, APPLY TO AFFECTED AREA TWICE A DAY, 151.2, cm, 07/14/22 13:03:00 EDT,Height Start Date: 10/17/22 Status: Ordered Problem List Condition Confirmation Course [...] Primary Care Member Role: PCP Address: Address: [address] [place] [address] [address] [place] [address]- Care Team Related Persons Name: ALETA HERNDON Address: home [address] [place] [address] Name: EDNA WALDRON Address: [place] [address] Name: MORENO SUMMERS Address: [employer] Address: home [address] [place] [address]
--- OUTSIDE RECORDS SUMMARY | 2023-02-07 14:41 | XMS_ITS | Continuity of Care Document ---
Author Name Unknown Organization [facility] Adult Address [address] [place] [address]- Care Team Providers Care Rn Sane Name Role Phone Jaymie Yeh MD Primary Care Physician [phone] Encounter [facility] Date(s): 12/27/22 - 01/26/[address] [address]- Allergies, Adverse Reactions, Alerts Substance Reaction Severity Status Benadryl Active Latex Active Peanuts Active Seafood Active Pineapple Active Immunizations Given and Recorded Vaccine Date Status Refusal Reason tetanus/diphtheria/pertussis, acel(Tdap) 01/15/19 Given Medications triamcinolone 0.1% topical cream See Instructions, APPLY TO AFFECTED AREA TWICE A DAY, # 60 Gm, 0 Refills, Maintenance, 12/28/22 8:40:00 EDT, [id number], 60, APPLY TO AFFECTED AREA TWICE A DAY, 151.2, cm, 07/14/22 13:03:00 EDT, Height Start Date: 12/28/22 Status: Ordered Problem List Condition Confirmation Course Effective Dates Status [facility] atus Informant Dermatitis Confirmed Active Noncompliance Confirmed Active Sickle cell trait Confirmed Active Social History Social History Type Response Smoking Status Never (less than 100 in lifetime) entered on: 05/09/22 Sex Female Patient Care team information Care Team Personnel Name: Jaymie Yeh MD Position: [facility] Physician - Primary Care Member Role: PCP Address: Address: [address] [place] [address] [address] [place] [address]- Care Team Related Persons Name: ALETA HERNDON Address: home [address] [place] [address] Name: EDNA WALDRON Address: [place] [address] Name: CARRIE SUMMERSJEREMY Address: AMERCN Address: home [address] [place] [address]
--- OUTSIDE RECORDS SUMMARY | 2023-02-07 14:41 | XMS_ITS | Continuity of Care Document ---
Author Name Unknown Organization [facility] Address [address] [place] [address]- Care Team Providers Care Map Plotter Name Role Phone Jaymie Yeh MD Primary Care Physician [phone] [id number] Date(s[facility] 11/29/22 - 12/29/[address] [address] Attending Physician: Bill Spencer Admitting Physician: AdmBill [...] Gm, 0 Refills, Maintenance, 12/28/22 8:40:00 EDT, [facility][id number], 60, APPLY TO AFFECTED AREA TWICE A DAY, 151.2, cm, 07/14/22 13:03:00 EDT, Height Start Date: 12/28/22 Status: Ordered Problem List Condition Confirmation Course Effective Dates Status [facility] atus Informant Dermatitis Confirmed Active Noncompliance Confirmed Active Sickle cell trait Confirmed Active Social History Social History Type Response Smoking Status Never (less than 100 in lifetime) entered on: 05/09/22 Sex Female Patient Care team information Care Team Personnel Name: Jaymie Yeh MD Position: S Physician - Primary Care Member Role: PCP Address: Address: [address] [place] [address] [address] [facility] [place] [address]- [place] Care Team Related Persons Name: ADONIS HERNDONYAZMIN Address: home [address] [place] [address] Name: EDNA WALDRON Address: [place] [address] Name: MORENO SUMMERS Address: AMERCN Address: home [address] [place] [address]
--- OUTSIDE RECORDS SUMMARY | 2023-02-07 14:42 | XMS_ITS | Continuity of Care Document ---
Author Name Unknown Organization [facility] Address [address] [place] [address]- Care Team Providers Care Surveillance Specialist Name Role Phone Jaymie Yeh MD Primary Care Physician Encounter [facility] Date(s): 10/26/22 - 11/25/[address] [address]- Allergies, Adverse Reactions, Alerts Substance Reaction Severity Status Benadryl Active Latex Active Peanuts Active Seafood Active Pineapple Active Immunizations Given and Recorded Vaccine Date Status Refusal Reason tetanus/diphtheria/pertussis, acel(Tdap) 01/15/19 Given Medications triamcinolone 0.1% topical cream See Instructions, APPLY TO AFFECTED AREA TWICE A DAY, # 60 Gm, 0 Refills, Maintenance, 10/17/22 9:30:00 EDT, [id number], 60, APPLY TO AFFECTED AREA TWICE A [...] Primary Care Member Role: PCP Address: Address: [address] [place] [address] [address] [place] [address]- Care Team Related Persons Name: ALETA HERNDON Address: home [address] [place] [address] Name: EDNA WALDRON Address: [place] [address] Name: MORENO SUMMERS Address: AMERCN Address: home [address] [place] [address]
--- OUTSIDE RECORDS SUMMARY | 2023-02-07 14:42 | XMS_ITS | Continuity of Care Document ---
Author Name Unknown Organization [facility] Address [address] [place] [address]- Care Team Providers Care Physiological Chemist Name Role Phone Jaymie Yeh MD Primary Care Physician [phone] Encounter [facility] Date(s): 11/01/22 - 12/01/[address] [address]- Allergies, Adverse Reactions, Alerts Substance Reaction Severity Status Benadryl Active Latex Active Peanuts Active Seafood Active Pineapple Active Immunizations Given and Recorded Vaccine Date Status Refusal Reason tetanus/diphtheria/pertussis, acel(Tdap) 01/15/19 Given Medications triamcinolone 0.1% topical cream See Instructions, APPLY TO AFFECTED AREA TWICE A DAY, # 60 Gm, 0 Refills, Maintenance, 10/17/22 9:30:00 EDT, [facility], 60, APPLY TO AFFECTED AREA TWICE A [...] Primary Care Member Role: PCP Address: Address: [address] [place] [address] [address] [place] [address]- Care Team Related Persons Name: ALETA HERNDON Address: home [address] [place] [address] Name: EDNA WALDRON Address: [place] [address] Name: MORENO SUMMERS Address: AMERCN Address: home [address] [place] [address]
--- OUTSIDE RECORDS SUMMARY | 2023-02-07 14:42 | XMS_ITS | Continuity of Care Document ---
Author Name Unknown Organization [facility] Address [address] [place] [address]- Care Team Providers Care Or Scrub Tech Name Role Phone Jaymie Yeh MD Primary Care Physician [id number] Date[facility] 11/01/22 - 12/29/[address] [address]- Attending Physician: Not on Staff, Attending MD [...] Primary Care Member Role: PCP Address: Address: [address] [place] [address]- Care Team Related Persons Name: ALETA HERNDON Address: home [address] [place] [address] Name: EDNA WALDRON Address: [place] [address] Name: MORENO SUMMERS Address: AMERCN Address: home [address] [place] [address]
== END 2023-02-07 14:51 | disposition home or self-care (01) ==
PROVIDERS: Registered Nurse Emergency; Emergency Provider Emergency Medicine Emergency Medical Services
DX: U07.1 COVID-19 (principal); R05.9 Cough, unspecified; R51.9 Headache, unspecified; M79.10 Myalgia, unspecified site
CPT/HCPCS: 87502; 87635; 87651; 99282; 99283

== ENCOUNTER 2023-05-12 12:32 | Emergency (ER) | payer OTHER, SELFPAY ==
[2023-05-12 12:59] VITALS: BP 115/79; PULSE 77; RESP 17; TEMP 36.8; O2SAT 100; BMI 29.3
--- NOTE | 2023-05-12 13:00 | ED_ITS ---
HPI - General Adult General Chief complaint: Vaginal Bleeding Stated complaint: vaginal bleeding cramping Time Seen by Provider: 05/12/23 16:15 Source: patient Limitations: no limitations History of Present Illness HPI narrative: 27-year-old female, , who has a history of anemia, presents for evaluation of persistent vaginal bleeding. Patient states that on April 27 she had unprotected vaginal intercourse. Patient states the following day she took the plan B pill. Two days later she began to have vaginal bleeding which was moderate for several days. Since that time though she has been having spotting which has been waxing waning in intensity. She reports it as dark red. It is mostly with wiping. She has not had any clots or needing to wear a pad. She does report associated intermittent lower abdominal cramping. She denies any fevers chills nausea or vomiting. No history of similar symptoms. She has not on any type of oral or implantable contraceptive. She denies any irregular menses. Her last normal period was April 06. No chest pain or shortness of breath. No lightheadedness. Related Data Previous Rx's Medication Instructions Recorded doxycycline monohydrate 100 mg 100 mg PO BID #14 caps 08/26/20 capsule doxycycline monohydrate 100 mg 100 mg PO BID #20 tabs 12/22/21 tablet cephalexin 500 mg capsule 500 mg PO Q6H 7 days #28 caps 09/30/22 benzonatate 100 mg capsule 100 mg PO TID PRN cough #14 caps 02/07/23 ibuprofen 600 mg tablet 600 mg PO Q6H PRN fever or pain 02/07/23 #20 tabs Allergies Allergy/AdvReac Type Severity Reaction Status Date / Time peanut [PEANUT] Allergy Severe DIFFICULTY Verified 05/20/21 14:43 BREATHING diphenhydramine Allergy Unknown Unknown Verified 05/20/21 14:43 [From BENADRYL] pineapple [PINEAPPLE] Allergy Unknown UNKNOWN Verified 05/20/21 14:43 Latex, Natural Rubber Allergy Itching Verified 09/30/22 18:57 SEAFOOD Allergy Severe DIFFICULTY Uncoded 05/20/21 14:43 BREATHING All sea foods Allergy Intermediate itching Uncoded 05/20/21 14:43 Review of Systems 2 Constitutional: Constitutional: Denies chills, Denies fever(s) and Denies headache(s) Eyes: Eyes: Denies change in vision and Denies other (No redness.) ENT: Denies headache(s), Denies nasal congestion, Denies nasal discharge, Denies neck pain and Denies sore throat Cardiovascular: Cardiovascular: Denies chest pain, Denies palpitations, Denies dyspnea, Denies dyspnea on exertion and Denies orthopnea Respiratory: Respiratory: Denies cough, Denies dyspnea and Denies dyspnea on exertion Gastrointestinal: Gastrointestinal: Denies abdominal pain, Denies melena, Denies hematochezia, Denies diarrhea, Denies nausea and Denies vomiting Genitourinary: Genitourinary: Denies dysuria, Denies urinary urgency and Reports vaginal discharge Musculoskeletal: Musculoskeletal: Denies back pain, Denies muscle weakness, Denies neck pain and Denies numbness Integumentary/Breasts: Skin/Breast: Denies rash Neurologic: Denies headache(s), Denies focal weakness and Denies numbness Psychiatric: Psychiatric: Denies depression Endocrine: Endocrine: Denies palpitations [facility] Past Medical History Medical History Anxiety Surgical History History of delivery Social History Social History Patient Tobacco Use Status: Never used Tobacco Advance Directives: No Advance Directives Information Provided: No Physical Exam ED Vital Signs: Vital Signs - 24 hr 05/12/23 12:59 05/12/23 15:24 Temperature 98.2 F 97.9 F Pulse Rate 77 75 Respiratory Rate 17 16 Blood Pressure 115/79 111/61 Pulse Oximetry 100 100 Oxygen Delivery Method Room Air Room Air BMI result Body Mass Index 29.3 Const General: healthy appearing, no acute distress, alert, awake and Physically active HENMT Other: Mucous membranes moist Resp Auscultation: clear to auscultation bilaterally GI Other: Abdomen is soft throughout. There is no tenderness. No peritoneal signs. No CVAT. No epigastric tenderness. No Bustillos's sign. Other: Patient refused Extrem Other: No calf tenderness or pedal edema Course Course Course Narrative: RME performed by Aurelia Wyman PA-C. Patient is a 27 year old assigned female at presenting to the emergency department with vaginal bleeding for 2 weeks after taking a plan B pill. Detailed physical exam and review of systems are deferred to the lamp tester and inspector. Labs ordered. Patient placed back in the waiting room pending room availability and results. Reevaluation(s) Reevaluation #1: Urinalysis with blood only, not requiring any antibiotic treatment. Time: 17:10 Medical Decision Making Medical Decision Making [facility] Narrative: 27-year-old female who has a history of anemia, presents with vaginal bleeding and spotting since April 28 after taking the plan B pill. Patient's H&H is slightly lower than baseline. Patient confirms that she takes iron but only intermittently and usually around her menses. She also reports that the spotting that she is having is quite minimal and not having to use any pads. She does not endorse any signs or symptoms of anemia. Beta quant is negative. Abdominal exam is reassuring. No concern for ectopic at this time. 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 In addition, consideration for pelvic ultrasound however again the patient does not wish to wait for any further testing or labs. Differential Diagnosis Differential Diagnoses: The differential diagnosis associated with the presentation includes Ectopic Abnormal vaginal bleeding Anemia UTI Pyelonephritis Ovarian cyst Lab Data [facility] Lab Attestation statement: I reviewed the patient's lab results. 05/12/23 13:07 05/12/23 13:07 Labs: Lab Results 05/12/23 05/12/23 Range/Units 13:07 16:44 WBC 8.5 (4.8-10.8) X10*3/uL RBC 4.36 (4.20-5.50) X10*6/uL Hgb 9.3 L (12.0-16.0) g/dl Hct 29.6 L (37.0-47.0) % MCV 67.9 L (80.0-98.0) fL MCH 21.3 L (27.0-33.0) pg MCHC 31.4 (31.0-35.0) g/dl RDW 18.3 H (11.0-16.0) % Plt Count 311 (160-400) X10*3/uL MPV 9.9 (9.4-12.3) fL Immature Gran % (Auto) 0.2 (0.0-0.4) % Neut % (Auto) 72.5 (45-73) % Lymph % (Auto) 17.5 L (20-40) % Rowan % (Auto) 7.9 (2-11) % Eos % (Auto) 1.5 (0-4) % Baso % (Auto) 0.4 (0-2) % Lymph # (Auto) 1.5 (1.2-4.9) X10*3/uL Rowan # (Auto) 0.7 (0.1-1.2) X10*3/uL Eos # (Auto) 0.1 (0.0-0.4) X10*3/uL Baso # (Auto) 0.0 (0.0-0.2) X10*3/uL Abs Immat Gran (auto) 0.02 (0.00-0.03) X10*3/uL Absolute Neuts (auto) 6.1 (2.0-8.3) x10*3/uL Absolute Nucleated RBC 0.000 (0.0-0.012) X10*3/uL Nucleated RBC % (auto) 0.0 (0.0-0.2) /100WBC PT 12.4 (11.1-13.3) SEC INR 1.0 (0.9-1.1) APTT 30.9 (26.0-36.8) SEC Sodium 140 (135-145) mmol/L Potassium 3.8 (3.3-5.1) mmol/L Chloride 105 (96-108) mmol/L Carbon Dioxide 27 (22-29) mmol/L Anion Gap 12 (12-20) BUN 9 (9-16) mg/dL Creatinine 0.79 (0.5-1.4) mg/dL Estim Creat Clear Calc 93.7 Estimated GFR > 60 Random Glucose 81 (60-115) mg/dL Calcium 9.8 (8.4-10.2) mg/dL Magnesium 2.0 (1.6-2.6) mg/dL Total Bilirubin 0.8 (0.0-1.0) mg/dL AST 14 (5-31) U/L ALT 9 (0-31) U/L Alkaline Phosphatase 76 (39-117) U/L Total Protein 8.1 H (6.5-8.0) g/dL Albumin 4.6 (3.5-5.0) g/dL Beta HCG, Quant < 2 mIU/mL Urine Color Yellow Urine Appearance Cloudy Urine pH 6.5 (5.0-9.0) Ur Specific [place] 1.015 (1.005-1.025) Urine Protein Negative (Neg-Trace) mg/dL Urine Glucose (UA) Negative (Negative) mg/dL Urine Ketones 40 (Negative) mg/dL Urine Blood Large (3+) H (Negative) Urine Nitrite Negative (Negative) Ur Leukocyte Esterase Negative (Negative) Urine RBC >20 H (0-2) /HPF Urine WBC 0-5 (0-5) /HPF Ur Squamous Epith Cells 3-5 (0-2) /HPF Urine Bacteria Trace (None Seen) Hyaline Casts 0-2 (0-2) /LPF Discharge Plan Discharge Clinical Impression: Abnormal vaginal bleeding Anemia Qualifiers: Anemia type: unspecified type Qualified Code(s): D64.9 - Anemia, unspecified Patient Disposition: Home, Self-Care Instructions: Menorrhagia (ED), Anemia (ED) Additional Instructions: Continue iron as directed. Follow-up with [facility] referral, Dr. Santoro. Your urine test is still pending. We will contact you if it requires any further treatment. Follow-up with your primary care provider. Call this week to schedule a follow- up appointment. Return to the emergency department if you have any worsening of symptoms, or any concerns. Get well soon! Prescriptions: No Action doxycycline monohydrate 100 mg capsule 100 mg PO BID Qty: 14 0RF doxycycline monohydrate 100 mg tablet 100 mg PO BID Qty: 20 0RF cephalexin 500 mg capsule 500 mg PO Q6H 7 Days Qty: 28 0RF ibuprofen 600 mg tablet 600 mg PO Q6H PRN (Reason: fever or pain) Qty: 20 0RF benzonatate 100 mg capsule 100 mg PO TID PRN (Reason: cough) Qty: 14 0RF Referrals: Alvin Santoro MD [Physician] - 1 week Interventions: ED Discharge Assessment Last Done: 05/12/23 17:07 Discharge Date/Time: 05/12/23 17:09
[2023-05-12 13:12] LABS: MANUAL DIFF FLAG NO
[2023-05-12 13:15] LABS: Basophils Percent Auto 0.4 % (0-2); Eosinophils Absolute Auto 0.1 X10*3/uL (0.0-0.4); Eosinophils Percent Auto 1.5 % (0-4); Hematocrit 29.6 % (37.0-47.0); Hemoglobin 9.3 g/dl (12.0-16.0); Imm Gran Abs Auto 0.02 X10*3/uL (0.00-0.03); Imm Gran Pct Auto 0.2 % (0.0-0.4); Lymphocytes Absolute Auto 1.5 X10*3/uL (1.2-4.9); Lymphocytes Percent Auto 17.5 % (20-40); Mean Corpuscular HGB Conc 31.4 g/dl (31.0-35.0); Mean Corpuscular Hemoglobin 21.3 pg (27.0-33.0); Mean Corpuscular Volume 67.9 fL (80.0-98.0); Mean Platelet Volume 9.9 fL (9.4-12.3); Monocytes Absolute Auto 0.7 X10*3/uL (0.1-1.2); Monocytes Percent Auto 7.9 % (2-11); Neutrophils Absolute Auto 6.1 x10*3/uL (2.0-8.3); Neutrophils Percent Auto 72.5 % (45-73); Platelet Count 311 X10*3/uL (160-400); Red Blood Count 4.36 X10*6/uL (4.20-5.50); Red Cell Distribution Width 18.3 % (11.0-16.0); White Blood Count 8.5 X10*3/uL (4.8-10.8)
[2023-05-12 13:22] LABS: Prothrombin Time 12.4 SEC (11.1-13.3)
[2023-05-12 13:25] LABS: Partial Thromboplastin Time 30.9 SEC (26.0-36.8)
[2023-05-12 13:33] LABS: Alanine Aminotransferase 9 U/L (0-31); Albumin Level 4.6 g/dL (3.5-5.0); Alkaline Phosphatase 76 U/L (39-117); Anion Gap 12 (12-20); Aspartate Amino Transferase 14 U/L (5-31); Bilirubin Total 0.8 mg/dL (0.0-1.0); Blood Urea Nitrogen 9 mg/dL (9-16); Calcium 9.8 mg/dL (8.4-10.2); Carbon Dioxide 27 mmol/L (22-29); Chloride 105 mmol/L (96-108); Creatinine Clr Calc Pharmacy 93.7; Estimated Glomerular Filt Rate > 60; Glucose Random 81 mg/dL (60-115); Potassium 3.8 mmol/L (3.3-5.1); Sodium 140 mmol/L (135-145); Total Protein 8.1 g/dL (6.5-8.0)
[2023-05-12 13:36] LABS: HCG Quantitative < 2 mIU/mL
[2023-05-12 15:24] VITALS: BP 111/61; PULSE 75; RESP 16; TEMP 36.6; O2SAT 100
[2023-05-12 16:56] LABS: Appearance Urine Cloudy; Color Urine Yellow; Glucose Urine UA Negative (Negative); Leukocyte Esterase Urine Negative (Negative); Nitrite Urine Negative (Negative); PH 6.5 (5.0-9.0); Specific Gravity - Urine 1.015 (1.005-1.025); UMIC TRIGGER UACC YES; Urine Blood Large (3+) (Negative); Urine Ketones 40 mg/dL (Negative); Urine Protein Negative (Neg-Trace)
[2023-05-12 17:04] LABS: Bacteria Urine Trace (None Seen); Hyaline Casts Urine 0-2 /LPF (0-2); RBC Urine >20 /HPF (0-2); WBC Urine 0-5 /HPF (0-5)
== END 2023-05-12 17:09 | disposition home or self-care (01) ==
PROVIDERS: Physician Assistant Medical; Emergency Provider Emergency Medicine
DX: N93.9 Abnormal uterine and vaginal bleeding, unspecified (principal); D64.9 Anemia, unspecified
CPT/HCPCS: 36415; 80053; 81001; 83735; 84702; 85025; 85610; 85730; 99283; 99284

== ENCOUNTER 2023-07-28 04:54 | Emergency (ER) | payer OTHER, SELFPAY ==
[2023-07-28 04:59] VITALS: BP 136/90; PULSE 91; O2SAT 100
[2023-07-28 05:02] VITALS: BP 115/82; PULSE 95; RESP 16; TEMP 37.1; O2SAT 98; BMI 31.5
[2023-07-28 05:53] LABS: Influenza A PCR NEGATIVE (Negative); Influenza B PCR NEGATIVE (Negative); Resp Syncy Virus RNA Qual PCR NEGATIVE (Negative); SARS COV2 PCR INHOUSE NEGATIVE (Negative)
--- OUTSIDE RECORDS SUMMARY | 2023-07-28 07:36 | XMS_ITS | Continuity of Care Document ---
Author Organization [facility] Adult Address [address] [place] [address]- Care Team Providers Care Mine Shifter Name Role Phone Jaymie Yeh MD Primary Care Physician [phone] Encounter [facility] Date(s): 02/15/23 - 06/15/[address] [address] Attending Physician: Jaymie Yeh MD Allergies, Adverse Reactions, Alerts Substance Reaction Severity Status Benadryl Active Latex Active Peanuts Active Seafood Active Pineapple Active Immunizations Given and Recorded Vaccine Date Status Refusal Reason tetanus/diphtheria/pertussis, acel(Tdap) 01/15/19 Given Medications triamcinolone 0.1% topical cream See Instructions, APPLY TO AFFECTED AREA TWICE A DAY, # 60 Gm, 0 Refills, Maintenance, 05/04/23 15:35:00 EST, [facility], 60, APPLY TO AFFECTED AREA TWICE A DAY, 151.2, cm, 05/03/23 14:39:00 EST, Height Start Date: 05/04/23 Status: Ordered Problem List Condition Confirmation Course Effective Dates Status [facility] atus Informant Dermatitis Confirmed Active Noncompliance Confirmed Active Obese class I Confirmed Active Sickle cell trait Confirmed Active Social History Social History Type Response Smoking Status Never (less than 100 in lifetime) entered on: 05/09/22 Sex Female Patient Care team information Care Team Personnel Name: Jaymie Yeh MD Position: [facility] Physician - Primary Care Member Role: PCP Address: Address: [address] [place] [address] [address] [place] [address]- Care Team Related Persons Name: ALETA HERNDON Address: home [address] [place] [address] Name: EDNA WALDRON Address: [place] [address] Name: MORENO SUMMERS Address: AMERCN Address: [address] [place] [address]
--- OUTSIDE RECORDS SUMMARY | 2023-07-28 07:36 | XMS_ITS | Continuity of Care Document ---
Author Organization [facility] Adult Address [address] [place] [address]- Care Team Providers Care Stock Blender Name Role Phone Jaymie Yeh MD Primary Care Physician [place] [facility] Date(s): 05/03/23 - 06/02/[address] [address]- Allergies, Adverse Reactions, Alerts Substance Reaction Severity Status Benadryl Active Latex Active Peanuts Active Seafood Active Pineapple Active Immunizations Given and Recorded Vaccine Date Status Refusal Reason tetanus/diphtheria/pertussis, acel(Tdap) 01/15/19 Given Medications triamcinolone 0.1% topical cream See Instructions, APPLY TO AFFECTED AREA TWICE A DAY, # 60 Gm, 0 Refills, Maintenance, 05/04/23 15:35:00 EST, [facility], 60, APPLY TO AFFECTED AREA TWICE A [...] Primary Care Member Role: PCP Address: Address: [address] [place] [address]- Care Team Related Persons Name: ALETA HERNDON Address: home [address] [place] [address] Name: EDNA WALDRON Address: [place] [address] Name: CARRIE SUMMERSJEREMY Address: AMERCN Address: [address] [place] [address]
--- OUTSIDE RECORDS SUMMARY | 2023-07-28 07:36 | XMS_ITS | Continuity of Care Document ---
Author Organization [facility] Adult Address [address] [place] [address]- Care Team Providers Care Wrecking Crane Engine Operator Name Role Phone Jaymie Yeh MD Primary Care Physician [id number] Date[facility] 03/23/23 - 04/22/[address] [address]- Allergies, Adverse Reactions, Alerts Substance Reaction Severity Status Benadryl Active Latex Active Peanuts Active Seafood Active Pineapple Active Immunizations Given and Recorded Vaccine Date Status Refusal Reason tetanus/diphtheria/pertussis, acel(Tdap) 01/15/19 Given Medications triamcinolone 0.1% topical cream See Instructions, APPLY TO AFFECTED AREA TWICE A DAY, # 60 Gm, 0 Refills, Maintenance, 03/08/23 9:05:00 EST, [facility], 60, APPLY TO AFFECTED AREA TWICE A DAY, 151.2, cm, 07/14/22 13:03:00 EDT,Height Start Date: 03/08/23 Status: Ordered Problem List Condition Confirmation Course [...] Primary Care Member Role: PCP Address: Address: [address] [place] [address]- Care Team Related Persons Name: ALETA HERNDON Address: [address] [place] [address] Name: EDNA WALDRON Address: [place] [address] Name: CARRIE SUMMERSJEREMY Address: AMERCN Address: [address] [place] [address]
--- OUTSIDE RECORDS SUMMARY | 2023-07-28 07:36 | XMS_ITS | Continuity of Care Document ---
Author Organization [facility] Adult Address [address] [place] [address]- Care Team Providers Care Senior Analyst Market Intelligence Name Role Phone Jaymie Yeh MD Primary Care Physician Encounter [facility] [place] [facility] [id number] Date(s): 03/24/23 - 03/31/23 [facility] Adult [address] [place] [address]- Encounter Diagnosis Pain in right eye(Discharge Diagnosis) - 03/24/23 Attending Physician: Naren MACHINE OVERHAULER, Angeles Hull Allergies, Adverse Reactions, Alerts Substance Reaction Severity Status Benadryl Active Latex Active Peanuts Active Seafood Active Pineapple Active Immunizations Given and Recorded Vaccine Date Status Refusal Reason tetanus/diphtheria/pertussis, acel(Tdap) 01/15/19 Given Medications triamcinolone 0.1% topical cream See Instructions, APPLY TO AFFECTED AREA TWICE A DAY, # 60 Gm, 0 Refills, Maintenance, 03/08/23 9:05:00 EST, [id number], 60, APPLY TO AFFECTED AREA TWICE A DAY, 151.2, cm, 07/14/22 13:03:00 EDT,Height Start Date: 03/08/23 Status: Ordered Problem List Condition Confirmation Course Effective Dates Status Health St atus Informant Dermatitis Confirmed Active Noncompliance Confirmed Active Obese class I Confirmed Active Sickle cell trait Confirmed Active Diagnosis Diagnosis Type Effective Dates Health Status Cl inical Service Informant Pain in right eye Discharge Diagnosis 03/24/23 Vital Signs Most recent to oldest [Reference Range]: 1 2 Height 151.2 cm (03/24/23 8:51 AM) 151.2 cm (03/24/23 8:35 AM) Weight 68.6 kg (03/24/23 8:35 AM) Oxygen Saturation [94-100 %] 100 % (03/24/23 8:35 AM) Pulse Rate [55-90 bpm] 65 bpm (03/24/23 8:35 AM) Body Mass Index [18.5-24.99 kg/m2] 30.01 kg/m2 *>HHI* (03/24/23 8:35 AM) Blood Pressure [90-138/55-84 mm Hg] 92/6 0mm Hg (03/24/23 8:51 AM) 99/61mm Hg (03/24/23 8:35 AM) Respiratory Rate [16-30 br/min] 18 br/mi n (03/24/23 8:35 AM) Temperature [96.8-100.4 DegF] 98.2 DegF (03/24/23 8:35 AM) Mode of Delivery (Oxygen) Room air (03/24/23 8:35 AM) Blood pressure sites Arm, left (03/24/23 8:51 AM) Arm, right (03/24/23 8:35 AM) Temperature Route Oral (03/24/23 8:35 AM) Weight Obtained Via Standing scale (03/24/23 8:35 AM) Social History Social History Type Response Smoking Status Never (less than 100 in lifetime) entered on: 05/09/22 Sex Female Note * Mariann Mclean: PERFORM, SIGN, VERIFY Event Display: Patient Education/Instruction Authored Date: [id number] [facility] *[facility] Clinical Summary Name DIONY WALDRON Age 27 Years 1995 PCP Ruba BARROS, Jaymie [id number] Visit Date 03/24/2023 08:28:00 Additional Instructions: Scheduled Appointments?? Future Appointments ?*[facility] ?[address],??[address] ?Phone:??--?Fax:??-- ?Appt. Date:??05/16/2023?10:25 AM ?Scheduled Provider:??Jaymie Yeh MD Follow-Up Instructions ?? Diagnosis Ocular pain, right eye Medications: Please continue your medications until treatment is completed or stopped by your provider. Discuss any questions related to medications with your provider. Medications to Continue with No Changes These medications were not printed or sent to your pharmacy Triamcinolone Topical (triamcinolone 0.1% topical cream) APPLY TO AFFECTED AREA TWICE A DAY. Refills: 0. Next Dose: Allergy Info:?? Pineapple; Seafood; Peanuts; Latex; Benadryl Medications Given This Visit Future Orders ?No future orders Vital Signs Height 151.2 cm Weight 68.6 kg BMI 30.01 kg/m2 Blood Pressure 92 mm Hg/60 mm Hg Temperature 98.2 DegF Pulse Rate 65 bpm Respiratory Rate 18 br/min 02 Sat Mode of Delivery 100 %/Room air You can now view a summary of your hospital visit from the comfort of your home through a free online portal called [employer]. [employer] is a website that allows you to securely view your medical information including discharge summary, medications and follow-up visits. ??You can alsosend a secure electronic message to your doctor???s office to request appointments, renew medications or just ask a question. You can enroll at [email or web address] or register during your next office visit. [...] primary care provider, you may find a [facility] provider by calling [facility] Link at [phone]. [facility], in keeping with [facility] guidance, no longer requires face masks for staff, patientsor visitors in most situations. Similar to time spent indoors at other locations, there is the chance that you were exposed to respiratory viruses during your time with us (such as flu or COVID-19).? If you develop symptoms concerning for a viral respiratory infection, please seek testing (and treatment if indicated) from your medical provider or home test kit. For information about the plan of care [...] Team Personnel Name: Jaymie Yeh MD Position: [facility] Physician - Primary Care Member Role: PCP Address: Address: [address] [facility] [address]rd [place] [address]- Care Team Related Persons Name: ALETA HERNDON Address: home [address] [place] [address] Name: EDNA WALDRON Address: [place] [address] Name: MORENO SUMMERS Address: [employer] Address: home [address] [place] [address]
--- OUTSIDE RECORDS SUMMARY | 2023-07-28 07:36 | XMS_ITS | Continuity of Care Document ---
Author Organization [facility] Adult Address [address] [place] [address]- Care Team Providers Care Gas Systems Worker Name Role Phone Jaymie Yeh MD Primary Care Physician En[place] [facility] [place] Date(s): 05/04/23 - 06/03/[address] [address]- Allergies, Adverse Reactions, Alerts Substance Reaction Severity Status Benadryl Active Latex Active Peanuts Active Pineapple Active Seafood Active Immunizations Given and Recorded Vaccine Date Status Refusal Reason tetanus/diphtheria/pertussis, acel(Tdap) 01/15/19 Given Medications triamcinolone 0.1% topical cream See Instructions, APPLY TO AFFECTED AREA TWICE A DAY, # 60 Gm, 0 Refills, Maintenance, 05/04/23 15:35:00 EST, [facility], 60, APPLY TO AFFECTED AREA TWICE A [...] Care Member Role: PCP Address: Address: [address] [place] [address]- Care Team Related Persons Name: ALETA HERNDON Address: home [address] [place] [id number] Name: EDNA WALDRON Address: [place] [address] Name: CARRIE SUMMERSJEREMY Address: [employer] Address: home [address] [place] [address]
--- OUTSIDE RECORDS SUMMARY | 2023-07-28 07:37 | XMS_ITS | Continuity of Care Document ---
Author Organization [facility] Adult Address [address] [place] [address]- Care Team Providers Care Manager Cardiac Name Role Phone Jaymie Yeh MD Primary Care Physician Encounter [facility] [place] Date(s): 05/16/23 - 06/15/[address] [address] Attending Physician: Bill Spencer Admitting Physician: AdmBill [...] Gm, 0 Refills, Maintenance, 05/04/23 15:35:00 EST, [id number], 60, APPLY TO AFFECTED AREA TWICE A [...] Primary Care Member Role: PCP Address: Address: [address] [place] [address] [address] [place] [address]- Care Team Related Persons Name: ALETA HERNDON Address: home [address] [place] [address] Name: EDNA WALDRON Address: [place] [address] Name: MORENO SUMMERS Address: [employer] Address: [address] [place] [address]
--- OUTSIDE RECORDS SUMMARY | 2023-07-28 07:37 | XMS_ITS | Continuity of Care Document ---
Author Organization [facility] Adult Address [address] [place] [address]- Care Team Providers Care Video Game Creator Name Role Phone Jaymie Yeh MD Primary Care Physician Encounter [facility] [place] Date(s): 02/07/23 - 03/09/[address] [address] Allergies, Adverse Reactions, Alerts Substance Reaction Severity Status Benadryl Active Latex Active Peanuts Active Seafood Active Pineapple Active Immunizations Given and Recorded Vaccine Date Status Refusal Reason tetanus/diphtheria/pertussis, acel(Tdap) 01/15/19 Given Medications triamcinolone 0.1% topical cream See Instructions, APPLY TO AFFECTED AREA TWICE A DAY, # 60 Gm, 0 Refills, Maintenance, 03/08/23 9:05:00 EST, [email or web address], 60, APPLY TO AFFECTED AREA TWICE A DAY, 151.2, cm, 07/14/22 13:03:00 EDT,Height Start Date: 03/08/23 Status: Ordered Problem List Condition Confirmation Course Effective Dates Status Health atus Informant Dermatitis Confirmed Active Noncompliance Confirmed Active Sickle cell trait Confirmed Active Social History Social History Type Response Smoking Status Never (less than 100 in lifetime) entered on: 05/09/22 Sex Female Patient Care team information Care Team Personnel Name: Jaymie Yeh MD Position: S Physician - Primary Care Member Role: PCP Address: Address: [address] [place] [address] [address] [place] [address]- Care Team Related Persons Name: ALETA HERNDON Address: home [address] [place] [address] Name: EDNA WALDRON Address: [place] [address] Name: CARRIE SUMMERSJEREMY Address: [employer] Address: home [address] [place] [address] [place]
--- OUTSIDE RECORDS SUMMARY | 2023-07-28 07:37 | XMS_ITS | Continuity of Care Document ---
Author Organization [facility] Adult Address [address] [place] [address]- Care Team Providers Care Deputy [place] Marshal Name Role Phone Jaymie Yeh MD Primary Care Physician [facility] [id number] Date(s): 03/24/23 - 04/23/[address] [address] Attending Physician: Bill Spencer Admitting Physician: Admtr, Bill Referring Physician: AdmtrBill Allergies, Adverse Reactions, Alerts Substance Reaction Severity Status Benadryl Active Latex Active Peanuts Active Seafood Active Pineapple Active Immunizations Given and Recorded Vaccine Date Status Refusal Reason tetanus/diphtheria/pertussis, acel(Tdap) 01/15/19 Given Medications triamcinolone 0.1% topical cream See Instructions, APPLY TO AFFECTED AREA TWICE A DAY, # 60 Gm, 0 Refills, Maintenance, 03/08/23 9:05:00 EST, [facility], 60, APPLY TO AFFECTED AREA TWICE A [...] Primary Care Member Role: PCP Address: Address: [address] [place] [address]- Care Team Related Persons Name: ALETA HERNDON Address: home [address] [place] [address] Name: EDNA WALDRON Address: [place] [address] Name: MORENO SUMMERS Address: [employer] Address: [address] [place] [address]
== END 2023-07-28 07:40 | disposition left against medical advice (07) ==
PROVIDERS: Emergency Provider Emergency Medicine
DX: R09.81 Nasal congestion (principal); Z03.818 Encounter for observation for suspected exposure to other biological agents ruled out
CPT/HCPCS: 0241U; 99282; 99283